=== PATIENT | female | born 1955 | race Caucasian/White ===

== ENCOUNTER 2018-07-28 07:08 | Emergency (ER) | payer BC ==
[2018-07-28] MEDS ORDERED: solu-MEDROL 125 MG IV ONE (07:45)
[2018-07-28] MEDS ORDERED: Sodium Chloride 0.9% 1000 ML 1,000 ML IV SCH (07:45)
[2018-07-28] MEDS ORDERED: DUONEB 0.5-3 MG/3 ml Neb IH ONE ×2 (07:45→08:14)
[2018-07-28] MEDS ORDERED: Zofran 4 MG/2 ML VIAL IV ONE (07:47)
[2018-07-28 07:57] LABS: VBG BASE EXCESS 0.7 (-2.0-2.0); VBG CARBOXYHEMOGLOBIN 2.9 % T HGB (0.0-6.9); VBG HCO3- 25.4 meq/L (22-28); VBG HEMOGLOBIN 12.4; VBG O2 SATURATION 89.6 (95-100); VBG POTASSIUM 3.8 (3.5-5.1); VBG pH 7.41 (7.32-7.42)
[2018-07-28 07:58] LABS: BASOPHIL % 0.2 % (0.0-0.4); Basophil (Absolute #) 0.01 (0-0.4); Eosinophil % 2.5 % (0.00-5.0); Eosinophil (Absolute #) 0.14 (0-0.5); Granulocyte Absolute (ANC) 3.68 (1.4-6.9); Granulocytes % 65.8 % (36.0-66.0); Hematocrit 38.7 % (35-47); Hemoglobin 12.6 gm/dl (12.0-16.0); Lymphocyte (Absolute #) 1.29 (1.0-4.6); Lymphocytes % 23.1 % (24.0-44.0); Mean Cell Volume 91.7 fl (78-100); Mean Corpuscular Hemoglobin 29.9 pg (26-32); Mean Corpuscular Hgb Concent. 32.6 g/dl (32-36); Mean Platelet Volume 9.8 fl (6-9.5); Monocyte (Absolute #) 0.47 (0.0-1.3); Monocytes % 8.4 % (0.0-12.0); Platelet Count 185 K/mm3 (150-450); Red Blood Count 4.22 M/mm3 (4.1-5.4); Red Cell Distribution Width 12.9 % (11.5-14.0); White Blood Count 5.6 K/mm3 (4.0-10.5)
[2018-07-28 07:59] LABS: Lactic Acid 2.6 (0.4-2.0)
[2018-07-28] MEDS ORDERED: MORPHINE SULFATE 4 MG INJ IV ONE (08:00)
--- NOTE | 2018-07-28 08:00 | ERPHSYRPT ---
- History of Present Illness Time Seen by Provider: 07/28/18 07:25 Patient Subjective Stated Complaint: short of breath and severe headache Triage Nursing Assessment: Pt brought in by EMS with c/o of SOB and a severe headache, was placed on 2L NC, rates pain in head 10/10, unable to lie flat due to breathing, +1 pitting edema on bilateral lower extremities, chest clear, sinus tach, afebrile Physician History: PATIENT WITH HISTORY OF HYPERTENSION AND MULTIPLE ADMISSIONS FOR COMPLAINS OF ACUTE ONSE, OCCASIONAL COUGH THIS M ASSOCIATED WITH AN OCCIP pATIENT DENIES CHEST PAIN, DIAPHORESIS, PALPITATIONS, OR FEVER. Timing/Duration: today Activities at Onset: activity Severity of Dyspnea-Max: moderate Severity of Dyspnea-Current: moderate Possible Cause: occasional episodes Modifying Factors: Improves With: activity, coughing, lying down Associated Symptoms: constant (HEADACHE) International travel in last 2 weeks: No Allergies/Adverse Reactions: No Known Drug Allergies Allergy (Verified 07/28/18 07:29) Home Medications: Hydroxyzine HCl 25 mg [Atarax 25 mg] 25 mg PO BID 01/08/15 [History] Aspirin 81 gm Chew [Baby Aspirin 81 mg Chew] 81 mg PO DAILY 06/14/16 [ History] Haskell-3S/Dha/Epa/Fish Oil [Fish Oil 1,200 mg Softgel] 1 cap PO BID 06/14/16 [ History] Pravastatin Sodium 40 mg PO HS 06/14/16 [History] Atorvastatin Calcium [Lipitor] 10 mg PO DAILY 07/28/18 [History] Hx Tetanus, Diphtheria Vaccination/Date Given: Yes Hx Influenza Vaccination/Date Given: Yes Hx Pneumococcal Vaccination/Date Given: No - Review of Systems Constitutional: No Fever, No Chills Eyes: No Symptoms Ears, Nose, & Throat: No Symptoms Respiratory: Cough, No Dyspnea Cardiac: No Symptoms, No Chest Pain, No Edema, No Syncope Abdominal/Gastrointestinal: No Symptoms, No Abdominal Pain, No Nausea, No Vomiting, No Diarrhea Genitourinary Symptoms: No Symptoms, No Dysuria Musculoskeletal: No Symptoms, No Back Pain, No Neck Pain Skin: No Rash Neurological: Headache, No Dizziness, No Focal Weakness, No Sensory Changes Psychological: No Symptoms Endocrine: No Symptoms All Other Systems: Reviewed and Negative - Past Medical History Pertinent Past Medical History: Yes Neurological History: No Pertinent History ENT History: No Pertinent History Cardiac History: High Cholesterol, Hypertension Respiratory History: No Pertinent History Endocrine Medical History: No Pertinent History Musculoskeletal History: Arthritis, Osteoporosis GI Medical History: No Pertinent History History: No Pertinent History Psycho-Social History: No Pertinent History Female Reproductive Disorders: No Pertinent History Other Medical History: Previous R knee scope 8-9 years ago. Also with a L knee scope in the past. - Past Surgical History Past Surgical History: Yes Neuro Surgical History: No Pertinent History Cardiac: No Pertinent History Respiratory: No Pertinent History Gastrointestinal: Cholecystectomy Genitourinary: No Pertinent History Musculoskeletal: Orthopedic Surgery Female Surgical History: Hysterectomy Other Surgical History: KNEE SURGERY - Social History Smoking Status: Smoker, status unknown Exposure to second hand smoke: No Drug Use: none Patient Lives Alone: No - Female History Hx Now: No - Nursing Vital Signs Nursing Vital Signs: Initial Vital Signs Temperature 98.1 F 07/28/18 07:18 Pulse Rate 81 07/28/18 07:18 Respiratory Rate 19 07/28/18 07:18 Blood Pressure 147/82 07/28/18 07:18 O2 Sat by Pulse Oximetry 98 07/28/18 07:18 Pain Scale Pain Intensity 4 - Physical Exam General Appearance: no apparent distress, alert Eye Exam: PERRL/EOMI Neck Exam: normal inspection, supple Respiratory Exam: diminished breath sounds (AT BASES OCCASIONA TERMINAL EXPIRATORY WHEEZES) Cardiovascular/Chest Exam: normal heart sounds, regular rate/rhythm Abdominal/Gastrointestinal Exam: soft, No tenderness, No distention, No mass Extremity Exam: non-tender, normal range of motion, normal inspection, no calf tenderness, no pedal edema Peripheral Pulses Exam: carotid (R): 2+, carotid (L): 2+, femoral (R): 2+, femoral (L): 2+, dorsalis-pedis (R): 2+, dorsalis-pedis (L): 2+ Neurologic Exam: alert, oriented x 3, cooperative, moisture meter reader II-XII nml as tested, sensation nml, No motor deficits Skin Exam: normal color, warm, No dry SpO2 Interpretation: normal SpO2: 98 - Course EKG Interpreted by Me: RATE, Sinus Rhythm (RATE OF 81), NORMAL AXIS - Radiology Exams Chest X-ray Interpretation: Interpreted by me (HYPERINFLATION, FLAT DIAPHRAMS, RIGHT LOWER LOBE INFILTRATE) - CT Exams Chest CT Interpretation: Tele-radiologist Report (NO EVIDENCE OF PULMONARY EMBOLISM, THERE ARE MILD PATCHY ATELECTASIS SCATTERED THROUGHOUT BOTH LUNGS) Ordered Tests: Active Orders 24 hr Category Date Time Status Cane Piler STAT Care 07/28/18 07:46 Active EKG-ER Only STAT Care 07/28/18 07:45 Active Pulse Oximetry (ED) STAT Care 07/28/18 07:45 Active CHEST 1 VIEW (PORTABLE) Stat Exams 07/28/18 07:46 Taken CHEST WITH CONTRAST [CT] Stat Exams 07/28/18 08:15 Taken BLOOD CULTURE Stat Lab 07/28/18 08:00 Received CBC W DIFF Stat Lab 07/28/18 07:30 Completed CMP Stat Lab 07/28/18 07:30 Completed D-DIMER QUANTITATION Stat Lab 07/28/18 07:30 Completed Lactic Acid Stat Lab 07/28/18 07:45 Completed Lactic Acid Stat Lab 07/28/18 09:59 Results MAGNESIUM Stat Lab 07/28/18 07:30 Completed NT PRO BNP Stat Lab 07/28/18 07:30 Completed PROTIME WITH INR Stat Lab 07/28/18 07:30 Completed TROPONIN Q3H Lab 07/28/18 07:30 Completed TROPONIN Q3H Lab 07/28/18 10:30 Received TROPONIN Q3H Lab 07/28/18 13:45 Ordered TROPONIN Q3H Lab 07/28/18 16:45 Ordered TROPONIN Q3H Lab 07/28/18 19:45 Ordered VENOUS BLOOD GAS Stat Lab 07/28/18 07:48 Completed Peak Expiratory Flow Rate ONCE RT 07/28/18 07:47 Completed Respiratory Therapy Assessment DAILY RT 07/28/18 08:21 Completed Medication Summary Generic Name Dose Route Start Last Admin Trade Name Freq PRN Reason Stop Dose Admin Sodium Chloride 1,000 mls @ 50 mls/hr 07/28/18 07:45 07/28/18 08:20 Sodium Chloride 0.9% 1000 Ml IV 08/27/18 07:44 Infused .Q20H [facility] Infusion Discontinued Medications Generic Name Dose Route Start Last Admin Trade Name Freq PRN Reason Stop Dose Admin Albuterol/Ipratropium 3 ml 07/28/18 07:45 07/28/18 08:20 Duoneb 0.5-3 Mg/3 Ml Neb IH 07/28/18 07:46 3 ml STAT ONE Administration Albuterol/Ipratropium Confirm 07/28/18 08:14 Duoneb 0.5-3 Mg/3 Ml Neb Administered 07/28/18 08:15 Dose 3 ml IH .STK-MED ONE Sodium Chloride 1,000 mls @ 999 mls/hr 07/28/18 09:27 07/28/18 10:58 Sodium Chloride 0.9% 1000 Ml IV 07/28/18 10:27 999 mls/hr .Q1H1M STA Administration Levofloxacin/Dextrose 500 mg in 100 mls @ 100 mls/hr 07/28/18 09:28 07/28/18 11:02 Levofloxacin 500mg/100ml D5w IV 07/28/18 10:27 Infused STAT STA Infusion Levofloxacin/Dextrose Confirm 07/28/18 09:55 Levofloxacin 500mg/100ml D5w Administered 07/28/18 09:56 Dose 500 mg in 100 mls @ ud IV .STK-MED ONE Methylprednisolone Sodium Succinate 125 mg 07/28/18 07:45 07/28/18 08:06 Solu-Medrol 125 Mg IV 07/28/18 07:46 125 mg STAT ONE Administration Methylprednisolone Sodium Succinate Confirm 07/28/18 08:02 Solu-Medrol 125 Mg Administered 07/28/18 08:03 Dose 125 mg .ROUTE .STK-MED ONE Morphine Sulfate 4 mg 07/28/18 08:00 07/28/18 08:12 Morphine Sulfate 4 Mg Inj IV 07/28/18 08:01 4 mg STAT ONE Administration Morphine Sulfate Confirm 07/28/18 08:10 Morphine Sulfate 4 Mg Inj Administered 07/28/18 08:11 Dose 4 mg .ROUTE .STK-MED ONE Ondansetron HCl 4 mg 07/28/18 07:47 07/28/18 08:07 Zofran 4 Mg/2 Ml Vial IV 07/28/18 07:48 4 mg STAT ONE Administration Ondansetron HCl Confirm 07/28/18 08:02 Zofran 4 Mg/2 Ml Vial Administered 07/28/18 08:03 Dose 4 mg .ROUTE .STK-MED ONE Lab/Rad Data: Laboratory Result Diagrams 07/28/18 07:30 07/28/18 07:30 Laboratory Results 07/28/18 07/28/18 07/28/18 Range/Units 09:59 08:00 07:48 WBC (4.0-10.5) K/mm3 RBC (4.1-5.4) M/mm3 Hgb (12.0-16.0) gm/dl Hct (35-47) % MCV (78-100) fl MCH (26-32) pg MCHC (32-36) g/dl RDW (11.5-14.0) % Plt Count (150-450) K/mm3 MPV (6-9.5) fl Gran % (36.0-66.0) % Eos # (Auto) (0-0.5) Absolute Lymphs (auto) (1.0-4.6) Absolute Monos (auto) (0.0-1.3) Lymphocytes % (24.0-44.0) % Monocytes % (0.0-12.0) % Eosinophils % (0.00-5.0) % Basophils % (0.0-0.4) % Absolute Granulocytes (1.4-6.9) Basophils # (0-0.4) PT (9.95-12.35) SECONDS INR (0.8-3.0) D-Dimer (215-500) ng/mL pO2/FiO2 Ratio 21.0 % VBG pH 7.41 (7.32-7.42) VBG pCO2 at Pat Temp 40 L (42-55) mm/Hg VBG pO2 at Pat Temp 48 H (25-40) mm/Hg VBG HCO3 25.4 (22-28) meq/L VBG O2 Sat (Darren) 89.6 L (95-100) VBG Base Excess 0.7 (-2.0-2.0) VBG Hemoglobin 12.4 VBG Carboxyhemoglobin 2.9 (0.0-6.9) % T HGB POC Potassium 3.8 (3.5-5.1) Sodium (137-145) mmol/L Potassium (3.5-5.1) mmol/L Chloride (98-107) mmol/L Carbon Dioxide (22-30) mmol/L Anion Gap (5-15) MEQ/L BUN (7-17) mg/dL Creatinine (0.52-1.04) mg/dL Estimated GFR ML/MIN Glucose (74-106) mg/dL Lactic Acid 2.0 (0.4-2.0) Calcium (8.4-10.2) mg/dL Magnesium (1.6-2.3) mg/dL Total Bilirubin (0.2-1.3) mg/dL AST (14-36) U/L ALT (0-35) U/L Alkaline Phosphatase (38-126) U/L Troponin I (0.000-0.034) ng/mL NT-Pro-B Natriuret Pep (0-900) pg/mL Serum Total Protein (6.3-8.2) g/dL Albumin (3.5-5.0) g/dL Influenza Type A Ag NEGATIVE (NEGATIVE) Influenza Type B Ag NEGATIVE (NEGATIVE) RSV (PCR) NEGATIVE (Negative) 07/28/18 07/28/18 07/28/18 Range/Units 07:45 07:30 07:30 WBC (4.0-10.5) K/mm3 RBC (4.1-5.4) M/mm3 Hgb (12.0-16.0) gm/dl Hct (35-47) % MCV (78-100) fl MCH (26-32) pg MCHC (32-36) g/dl RDW (11.5-14.0) % Plt Count (150-450) K/mm3 MPV (6-9.5) fl Gran % (36.0-66.0) % Eos # (Auto) (0-0.5) Absolute Lymphs (auto) (1.0-4.6) Absolute Monos (auto) (0.0-1.3) Lymphocytes % (24.0-44.0) % Monocytes % (0.0-12.0) % Eosinophils % (0.00-5.0) % Basophils % (0.0-0.4) % Absolute Granulocytes (1.4-6.9) Basophils # (0-0.4) PT 10.3 (9.95-12.35) SECONDS INR 0.89 (0.8-3.0) D-Dimer 516 H* (215-500) ng/mL pO2/FiO2 Ratio % VBG pH (7.32-7.42) VBG pCO2 at Pat Temp (42-55) mm/Hg VBG pO2 at Pat Temp (25-40) mm/Hg VBG HCO3 (22-28) meq/L VBG O2 Sat (Darren) (95-100) VBG Base Excess (-2.0-2.0) VBG Hemoglobin VBG Carboxyhemoglobin (0.0-6.9) % T HGB POC Potassium (3.5-5.1) Sodium 139 (137-145) mmol/L Potassium 3.9 (3.5-5.1) mmol/L Chloride 104 (98-107) mmol/L Carbon Dioxide 25 (22-30) mmol/L Anion Gap 14.3 (5-15) MEQ/L BUN 16 (7-17) mg/dL Creatinine 0.49 L (0.52-1.04) mg/dL Estimated GFR > 60.0 ML/MIN Glucose 121 H (74-106) mg/dL Lactic Acid 2.6 H (0.4-2.0) Calcium 9.3 (8.4-10.2) mg/dL Magnesium 1.9 (1.6-2.3) mg/dL Total Bilirubin 0.40 (0.2-1.3) mg/dL AST 23 (14-36) U/L ALT 22 (0-35) U/L Alkaline Phosphatase 81 (38-126) U/L Troponin I (0.000-0.034) ng/mL NT-Pro-B Natriuret Pep 88.8 (0-900) pg/mL Serum Total Protein 7.3 (6.3-8.2) g/dL Albumin 4.2 (3.5-5.0) g/dL Influenza Type A Ag (NEGATIVE) Influenza Type B Ag (NEGATIVE) RSV (PCR) (Negative) 07/28/18 07/28/18 Range/Units 07:30 07:30 WBC 5.6 (4.0-10.5) K/mm3 RBC 4.22 (4.1-5.4) M/mm3 Hgb 12.6 (12.0-16.0) gm/dl Hct 38.7 (35-47) % MCV 91.7 (78-100) fl MCH 29.9 (26-32) pg MCHC 32.6 (32-36) g/dl RDW 12.9 (11.5-14.0) % Plt Count 185 (150-450) K/mm3 MPV 9.8 H (6-9.5) fl Gran % 65.8 (36.0-66.0) % Eos # (Auto) 0.14 (0-0.5) Absolute Lymphs (auto) 1.29 (1.0-4.6) Absolute Monos (auto) 0.47 (0.0-1.3) Lymphocytes % 23.1 L (24.0-44.0) % Monocytes % 8.4 (0.0-12.0) % Eosinophils % 2.5 (0.00-5.0) % Basophils % 0.2 (0.0-0.4) % Absolute Granulocytes 3.68 (1.4-6.9) Basophils # 0.01 (0-0.4) PT (9.95-12.35) SECONDS INR (0.8-3.0) D-Dimer (215-500) ng/mL pO2/FiO2 Ratio % VBG pH (7.32-7.42) VBG pCO2 at Pat Temp (42-55) mm/Hg VBG pO2 at Pat Temp (25-40) mm/Hg VBG HCO3 (22-28) meq/L VBG O2 Sat (Darren) (95-100) VBG Base Excess (-2.0-2.0) VBG Hemoglobin VBG Carboxyhemoglobin (0.0-6.9) % T HGB POC Potassium (3.5-5.1) Sodium (137-145) mmol/L Potassium (3.5-5.1) mmol/L Chloride (98-107) mmol/L Carbon Dioxide (22-30) mmol/L Anion Gap (5-15) MEQ/L BUN (7-17) mg/dL Creatinine (0.52-1.04) mg/dL Estimated GFR ML/MIN Glucose (74-106) mg/dL Lactic Acid (0.4-2.0) Calcium (8.4-10.2) mg/dL Magnesium (1.6-2.3) mg/dL Total Bilirubin (0.2-1.3) mg/dL AST (14-36) U/L ALT (0-35) U/L Alkaline Phosphatase (38-126) U/L Troponin I < 0.012 (0.000-0.034) ng/mL NT-Pro-B Natriuret Pep (0-900) pg/mL Serum Total Protein (6.3-8.2) g/dL Albumin (3.5-5.0) g/dL Influenza Type A Ag (NEGATIVE) Influenza Type B Ag (NEGATIVE) RSV (PCR) (Negative) - Progress Progress Note: 07/28/18 08:09 ADMINISTERED IV NORMAL SALINE 1 LITER/HR FOR LACTIC ACID 2.6, SOLUMEDROL 125MG, DUONEB AEROSOL, ZOFRAN 4MG, MORPHINE 4MG IV 07/28/18 11:24 AFTER 2 SETS OF BLOOD CULTURES, LEVAQUIN 500MG IVPB 07/28/18 11:31 DISCUSSED WITH PATIENT CONCERNING ADMISSION, REQUEST AMA, REFUSES ADMISSION FOR DYSPNEA Blood Culture(s) Obtained: Yes Antibiotics given: Yes Counseled pt/family regarding: lab results, diagnosis, need for follow-up, rad results - Departure Time of Disposition: 11:30 Departure Disposition: AMA Clinical Impression: ACUTE BRONCHITS WITH BRONCHIOSPASM, ACUTE CEPHALGIA Condition: Stable Critical Care Time: No Referrals: ALETHEA WASHINGTON [ACTIVE STAFF] - Additional Instructions: ANTIBIOTIC LEVAQUIN 500MG DAILY FOR 10 DAYS. PREDNISONE 20MG, 2 TABLETS DAILY FOR 4 DAYS, ALBUTEROL AEROSOL TREATMENT EVERY 4 HOURS NEEDED. CONSULT YOUR PRIMARY CARE PROVIDER FOR EVALUATION IN 1 WEEK. RETURN TO EMERGENCY FOR BREATHING DIFFICULTY. Prescriptions: Albuterol 2.5 mg/3 ml Neb [Proventil 2.5 mg/3 ml Neb] 2.5 mg IH Q4HPRN PRN #30 neb PRN Reason: DIFICULTY BREATHING Levofloxacin [Levaquin] 500 mg PO DAILY #10 tablet predniSONE [Prednisone] 2 tab PO DAILY #8 tablet
[2018-07-28 08:01] LABS: INR 0.89 (0.8-3.0); PROTIME 10.3 SECONDS (9.95-12.35)
[2018-07-28] MEDS ORDERED: solu-MEDROL 125 MG ONE (08:02)
[2018-07-28] MEDS ORDERED: Zofran 4 MG/2 ML VIAL ONE (08:02)
[2018-07-28] MEDS ORDERED: Sodium Chloride 0.9% 1000 ML 1,000 ML ONE ×2 (08:02→10:58)
[2018-07-28] MEDS ORDERED: MORPHINE SULFATE 4 MG INJ ONE (08:10)
[2018-07-28 08:13] LABS: ALBUMIN 4.2 g/dL (3.5-5.0); ALKALINE PHOSPHATASE 81 U/L (38-126); ANION GAP 14.3 MEQ/L (5-15); BLOOD UREA NITROGEN 16 mg/dL (7-17); CHLORIDE 104 mmol/L (98-107); Calcium 9.3 mg/dL (8.4-10.2); Carbon Dioxide 25 mmol/L (22-30); Creatinine 1 0.49 mg/dL (0.52-1.04); Glucose 121 mg/dL (74-106); MAGNESIUM 1.9 mg/dL (1.6-2.3); NT PRO BNP 88.8 pg/mL (0-900); Potassium 3.9 mmol/L (3.5-5.1); SGOT/AST 23 U/L (14-36); SGPT/ALT 22 U/L (0-35); SODIUM 139 mmol/L (137-145); Total Protein 7.3 g/dL (6.3-8.2)
[2018-07-28 09:02] LABS: INFLUENZA A NEGATIVE (NEGATIVE); INFLUENZA B NEGATIVE (NEGATIVE); RESPIRATORY SYNCTIAL VIRUS NEGATIVE (Negative)
[2018-07-28] MEDS ORDERED: Sodium Chloride 0.9% 1000 ML 1,000 ML IV STA (09:27)
[2018-07-28] MEDS ORDERED: Levofloxacin 500MG/100ML D5W 500 MG/100 ML BAG IV STA (09:28)
[2018-07-28] MEDS ORDERED: Levofloxacin 500MG/100ML D5W 500 MG/100 ML BAG IV ONE (09:55)
[2018-07-28 10:01] VITALS: BP 148/80; PULSE 82
[2018-07-28 11:24] VITALS: O2SAT 98
--- NOTE | 2018-07-28 15:55 | XRAY ---
Indication: Dyspnea. Comparison: June 28, 2016. Portable chest again demonstrates normal heart and lungs. Bony thorax intact with mild degenerative changes. No new/acute findings.
--- NOTE | 2018-07-28 16:00 | XRAY ---
Indication: Dyspnea. Elevated d-dimer. Multiple contiguous axial images obtained through the chest using 100 cc Isovue-370 contrast and PE protocol. Comparison: CT chest without contrast June 19, 2016. There is satisfactory opacification of the pulmonary arteries to include the lobar and segmental branches. No filling defect or pulmonary embolus. Heart is not enlarged. Aorta is normal in course and caliber. Stable small mediastinal lymph nodes, again largest precarinal measuring 1.5 x 2.2 cm. Also stable right hilar calcified node. Examination of the lung parenchyma again demonstrates minimal scattered fibrosis/scarring and tiny left base calcified pleural plaquing. No suspicious pulmonary mass, infiltrate, or effusion. Bony thorax intact again with mild degenerative changes throughout the spine. Limited upper abdomen unremarkable. Impression: 1. Negative pulmonary embolus. 2. Stable fibrosis/scarring, left base calcified pleural plaquing, and evidence for old granulomatous disease. 3. No acute cardiopulmonary abnormalities. Comment: Preliminary interpretation was made by [facility]. No discrepancy. CTDI 23.68
== END 2018-07-28 11:41 | disposition left against medical advice (07) ==
LOC: ED 07:08
DX: J20.9 Acute bronchitis, unspecified (principal); R51 Headache; E78.00 Pure hypercholesterolemia, unspecified; I10 Essential (primary) hypertension; M81.0 Age-related osteoporosis without current pathological fracture; M19.90 Unspecified osteoarthritis, unspecified site; Z79.899 Other long term (current) drug therapy
CPT/HCPCS: 36415; 71045; 71260; 80053; 82805; 83605; 83735; 83880; 84484; 85025; 85379; 85610; 87040; 87631; 93005; 93041; 94150; 94640; 96360; 96361; 96365; 96374; 96375; 99285; J1956; J2270; J2405; J2930; A9270-GY

== ENCOUNTER 2020-06-07 18:13 | Emergency (ER) | payer MEDICARE ==
[2020-06-07] MEDS ORDERED: MORPHINE SULFATE 2 MG INJ ONE (18:44)
[2020-06-07] MEDS: MORPHINE SULFATE 2 MG INJ IV ONE (18:46)
[2020-06-07 19:08] VITALS: O2SAT 97
--- NOTE | 2020-06-07 19:15 | ERPHSYRPT ---
- History of Present Illness Time Seen by Provider: 06/07/20 18:35 Source: patient Exam Limitations: no limitations Patient Subjective Stated Complaint: Back pain Triage Nursing Assessment: Patient brought back to ED via w/c and transferred self to bed. Patient A+O X 3. Patient's skin pink, warm and dry. Patient complains of pain to underneath Left shoulder blade since last night. Patient denies injury. Patient states the pain is constant, sharp 9/10 and worse when taking a breath. Lungs clear a/p j carlos. Physician History: Patient is a 64-year-old female presents to our emergency department for evaluation status post positive D-dimer. Patient has been experiencing pain at her left upper back adjacent to her scapula. Pain described as a sharp pain that is worse with deep inspiration. Patient's primary care doctor ordered lab work including a D-dimer. D-dimer was positive. Patient was advised to come to our ED for CTA chest. Patient denies chest pain. No nausea vomiting or diaphoresis. Symptoms are mild to moderate in intensity. Patient voices no other complaints or concerns at this time. Timing/Duration: yesterday Severity: moderate Modifying Factors: Improves With: other (Inspiration worsens symptoms.) Associated Symptoms: No nausea, No vomiting, No abdominal pain, No shortness of breath, No diaphoresis, No fever, No loss of appetite Allergies/Adverse Reactions: No Known Drug Allergies Allergy (Verified 06/07/20 18:26) Home Medications: Hydroxyzine HCl 25 mg [Atarax 25 mg] 25 mg PO BID 01/08/15 [History] Aspirin 81 gm Chew [Baby Aspirin 81 mg Chew] 81 mg PO DAILY 06/14/16 [History] [place]-3S/Dha/Epa/Fish Oil [Fish Oil 1,200 mg Softgel] 1 cap PO BID 06/14/16 [History] Pravastatin Sodium 40 mg PO HS 06/14/16 [History] Atorvastatin Calcium [Lipitor] 10 mg PO DAILY 07/28/18 [History] Hx Tetanus, Diphtheria Vaccination/Date Given: Yes Hx Influenza Vaccination/Date Given: Yes Hx Pneumococcal Vaccination/Date Given: No Immunizations Up to Date: Yes Travel Risk - International Travel Have you traveled outside of the country in past 3 weeks: No - Coronavirus Screening Are you exhibiting any of the following symptoms?: No Symptoms: Shortness of Breath Close contact with a COVID-19 positive Pt in past 14-21 Days: No - Review of Systems Constitutional: No Symptoms, No Fever, No Chills Eyes: No Symptoms Ears, Nose, & Throat: No Symptoms Respiratory: No Symptoms, No Cough, No Dyspnea Cardiac: No Symptoms, No Chest Pain, No Edema, No Syncope Abdominal/Gastrointestinal: No Symptoms, No Abdominal Pain, No Nausea, No Vomiting, No Diarrhea Genitourinary Symptoms: No Symptoms, No Dysuria Musculoskeletal: No Symptoms, No Back Pain, No Neck Pain Skin: No Symptoms, No Rash Neurological: No Symptoms, No Dizziness, No Focal Weakness, No Sensory Changes Psychological: No Symptoms Endocrine: No Symptoms Hematologic/Lymphatic: No Symptoms Immunological/Allergic: No Symptoms All Other Systems: Reviewed and Negative - Past Medical History Pertinent Past Medical History: Yes Neurological History: No Pertinent History ENT History: No Pertinent History Cardiac History: High Cholesterol, Hypertension Respiratory History: No Pertinent History Endocrine Medical History: No Pertinent History Musculoskeletal History: Arthritis, Osteoporosis GI Medical History: No Pertinent History History: No Pertinent History Psycho-Social History: No Pertinent History Female Reproductive Disorders: No Pertinent History Other Medical History: Previous R knee scope 8-9 years ago. Also with a L knee scope in the past. - Past Surgical History Past Surgical History: Yes Neuro Surgical History: No Pertinent History Cardiac: No Pertinent History Respiratory: No Pertinent History Gastrointestinal: Cholecystectomy Genitourinary: No Pertinent History Musculoskeletal: Orthopedic Surgery Female Surgical History: Hysterectomy Other Surgical History: KNEE SURGERY - Social History Smoking Status: Smoker, status unknown Exposure to second hand smoke: No Drug Use: none Patient Lives Alone: No - Nursing Vital Signs Nursing Vital Signs: Initial Vital Signs Temperature 98.3 F 06/07/20 18:27 Pulse Rate 92 H 06/07/20 18:27 Respiratory Rate 26 H 06/07/20 18:27 Blood Pressure 170/86 06/07/20 18:27 O2 Sat by Pulse Oximetry 97 06/07/20 18:27 Pain Scale Pain Intensity 7 - Physical Exam General Appearance: no apparent distress, alert Eye Exam: PERRL/EOMI, eyes nml inspection Ears, Nose, Throat Exam: normal ENT inspection, TMs normal, pharynx normal, moist mucous membranes Neck Exam: normal inspection, non-tender, supple, full range of motion Respiratory Exam: normal breath sounds, lungs clear, No respiratory distress Cardiovascular Exam: regular rate/rhythm, normal heart sounds, normal peripheral pulses Gastrointestinal/Abdomen Exam: soft, normal bowel sounds, No tenderness, No mass Back Exam: normal inspection, normal range of motion, No CVA tenderness, No vertebral tenderness Extremity Exam: normal inspection, normal range of motion, pelvis stable Neurologic Exam: alert, oriented x 3, cooperative, normal mood/affect, nml cerebellar function, nml station & gait, sensation nml, No motor deficits Skin Exam: normal color, warm, dry, No rash Lymphatic Exam: No adenopathy SpO2 Interpretation: normal SpO2: 97 O2 Delivery: Room Air - Course Nursing assessment & vital signs reviewed: Yes EKG Interpreted by Me: RATE (82), Sinus Rhythm, NORMAL AXIS, NORMAL INTERVALS - CT Exams Chest CT Interpretation: Tele-radiologist Report (Compared to 02/12/2020, negative PE. No new acute cardiopulmonary or bony abnormalities.) Ordered Tests: Active Orders 24 hr Category Date Time Status Procurement Officer STAT Care 06/07/20 18:30 Active EKG-ER Only STAT Care 06/07/20 18:29 Active IV Insertion STAT Care 06/07/20 18:29 Active Pulse Oximetry (ED) STAT Care 06/07/20 18:29 Active CHEST WITH CONTRAST [CT] Stat Exams 06/07/20 18:30 Taken CBC W DIFF Stat Lab 06/07/20 18:49 Completed CMP Stat Lab 06/07/20 18:49 Completed MAGNESIUM Stat Lab 06/07/20 18:49 Completed TROPONIN Q3H Lab 06/07/20 18:49 Completed TROPONIN Q3H Lab 06/07/20 21:30 Ordered TROPONIN Q3H Lab 06/08/20 00:30 Ordered TROPONIN Q3H Lab 06/08/20 03:30 Ordered TROPONIN Q3H Lab 06/08/20 06:30 Ordered Medication Summary Discontinued Medications Generic Name Dose Route Start Last Admin Trade Name Freq PRN Reason Stop Dose Admin Morphine Sulfate 2 mg 06/07/20 18:43 06/07/20 18:46 Morphine Sulfate 2 Mg Inj IV 06/07/20 18:44 Not Given STAT ONE Morphine Sulfate Confirm 06/07/20 18:44 Morphine Sulfate 2 Mg Inj Administered 06/07/20 18:45 Dose 2 mg .ROUTE .Porch Lab/Rad Data: Laboratory Result Diagrams 06/07/20 18:49 06/07/20 18:49 Laboratory Results 06/07/20 06/07/20 06/07/20 Range/Units 18:49 18:49 18:49 WBC 7.8 (4.0-10.5) K/mm3 RBC 4.47 (4.1-5.4) M/mm3 Hgb 13.4 (12.0-16.0) gm/dl Hct 40.6 (35-47) % MCV 90.8 (78-100) fl MCH 30.0 (26-32) pg MCHC 33.0 (32-36) g/dl RDW 13.2 (11.5-14.0) % Plt Count 209 (150-450) K/mm3 MPV 10.1 (7.5-11.0) fl Gran % 69.4 H (36.0-66.0) % Eos # (Auto) 0.14 (0-0.5) Absolute Lymphs (auto) 1.53 (1.0-4.6) Absolute Monos (auto) 0.69 (0.0-1.3) Lymphocytes % 19.6 L (24.0-44.0) % Monocytes % 8.8 (0.0-12.0) % Eosinophils % 1.8 (0.00-5.0) % Basophils % 0.4 (0.0-0.4) % Absolute Granulocytes 5.43 (1.4-6.9) Basophils # 0.03 (0-0.4) Sodium 136 L (137-145) mmol/L Potassium 4.3 (3.5-5.1) mmol/L Chloride 103 (98-107) mmol/L Carbon Dioxide 26 (22-30) mmol/L Anion Gap 11.8 (5-15) MEQ/L BUN 21 H (7-17) mg/dL Creatinine 0.42 L (0.52-1.04) mg/dL Estimated GFR > 60.0 ML/MIN Glucose 114 H (74-106) mg/dL Calcium 9.6 (8.4-10.2) mg/dL Magnesium 1.8 (1.6-2.3) mg/dL Total Bilirubin 0.50 (0.2-1.3) mg/dL AST 34 (14-36) U/L ALT 27 (0-35) U/L Alkaline Phosphatase 77 (38-126) U/L Troponin I < 0.012 (0.000-0.034) ng/mL Serum Total Protein 8.2 (6.3-8.2) g/dL Albumin 4.4 (3.5-5.0) g/dL Urinalys Dipstick Clnc Urine Color (YELLOW) Urine Appearance (CLEAR) Urine pH (5-6) Ur Specific [place] (1.005-1.025) POC Urine Protein Conf (Negative) Urine Ketones (NEGATIVE) Urine Nitrite (NEGATIVE) Urine Bilirubin (NEGATIVE) Urine Urobilinogen (0-1) mg/dL Urine Leukocytes (NEGATIVE) Urine WBC (Auto) (0-5) /HPF Urine RBC (Auto) (0-2) /HPF U Epithel Cells (Auto) (FEW) /HPF Urine Bacteria (Auto) (NEGATIVE) /HPF Urine RBC (0-5) Simone/ul Ur Culture Indicated? Urine Glucose (NEGATIVE) mg/dL 06/07/20 Range/Units 18:26 WBC (4.0-10.5) K/mm3 RBC (4.1-5.4) M/mm3 Hgb (12.0-16.0) gm/dl Hct (35-47) % MCV (78-100) fl MCH (26-32) pg MCHC (32-36) g/dl RDW (11.5-14.0) % Plt Count (150-450) K/mm3 MPV (7.5-11.0) fl Gran % (36.0-66.0) % Eos # (Auto) (0-0.5) Absolute Lymphs (auto) (1.0-4.6) Absolute Monos (auto) (0.0-1.3) Lymphocytes % (24.0-44.0) % Monocytes % (0.0-12.0) % Eosinophils % (0.00-5.0) % Basophils % (0.0-0.4) % Absolute Granulocytes (1.4-6.9) Basophils # (0-0.4) Sodium (137-145) mmol/L Potassium (3.5-5.1) mmol/L Chloride (98-107) mmol/L Carbon Dioxide (22-30) mmol/L Anion Gap (5-15) MEQ/L BUN (7-17) mg/dL Creatinine (0.52-1.04) mg/dL Estimated GFR ML/MIN Glucose (74-106) mg/dL Calcium (8.4-10.2) mg/dL Magnesium (1.6-2.3) mg/dL Total Bilirubin (0.2-1.3) mg/dL AST (14-36) U/L ALT (0-35) U/L Alkaline Phosphatase (38-126) U/L Troponin I (0.000-0.034) ng/mL Serum Total Protein (6.3-8.2) g/dL Albumin (3.5-5.0) g/dL Urinalys Dipstick Clnc MAIN LAB Urine Color YELLOW (YELLOW) Urine Appearance CLEAR (CLEAR) Urine pH 5.5 (5-6) Ur Specific [place] 1.020 (1.005-1.025) POC Urine Protein Conf NEGATIVE (Negative) Urine Ketones NEGATIVE (NEGATIVE) Urine Nitrite NEGATIVE (NEGATIVE) Urine Bilirubin NEGATIVE (NEGATIVE) Urine Urobilinogen 0.2 (0-1) mg/dL Urine Leukocytes NEGATIVE (NEGATIVE) Urine WBC (Auto) NONE (0-5) /HPF Urine RBC (Auto) NONE (0-2) /HPF U Epithel Cells (Auto) NONE (FEW) /HPF Urine Bacteria (Auto) NONE (NEGATIVE) /HPF Urine RBC TRACE-INTACT (0-5) Simone/ul Ur Culture Indicated? NO Urine Glucose NEGATIVE (NEGATIVE) mg/dL - Progress Progress: improved Progress Note: 06/07/20 20:26 Patient reassessed. Pain improved. CT a negative for PE. Case discussed with Dr. Diaz our patient's physician who referred her to our emergency department for a CT scan. Per we will discharge home with a prescription of indomethacin. Troponin negative. Plan of care discussed with patient. She agrees to follow-up with her primary care doctor within 48 hours for reevaluation. Discussed with : Madina Counseled pt/family regarding: lab results, diagnosis, need for follow-up, rad results - Departure Departure Disposition: Home Clinical Impression: Upper back pain on left side Condition: Stable Critical Care Time: No Referrals: ALEJO DIAZ MD [Primary Care Provider] - Additional Instructions: Discharge/Care Plan TIAN,FARHEEN RAO was seen on 06/07/20 in the Emergency Room. The patient was counseled regarding Diagnosis,Lab results, Imaging studies, need for follow up and when to return to the Emergency Room. Prescriptions given: Discharge Note I have spoken with the patient and/or caregivers. I have explained the patient's condition, diagnosis and treatment plan based on the information available to me at this time. I have answered the patient's and/or caregiver's questions and addressed any concerns. The patient and/or caregivers have as good understanding of the patient's diagnosis, condition and treatment plan as can be expected at this point. The vital signs have been stable. The patient's condition is stable and appropriate for discharge from the emergency department. The patient will pursue further outpatient evaluation with the primary care physician or other designated or consulting physician as outlined in the discharge instructions. The patient and/or caregivers are agreeable to this plan of care and follow-up instructions have been explained in detail. The patient and/or caregivers have received these instruction. The patient/and or caregivers are aware that any significant change in condition or worsening of symptoms should prompt an immediate return to this or the closest emergency department or call 911.
[2020-06-07 19:25] LABS: Absolute Neutrophil Ct (ANC) 5.43 (1.4-6.9); BASOPHIL % 0.4 % (0.0-0.4); Basophil (Absolute #) 0.03 (0-0.4); Eosinophil % 1.8 % (0.00-5.0); Eosinophil (Absolute #) 0.14 (0-0.5); Hematocrit 40.6 % (35-47); Hemoglobin 13.4 gm/dl (12.0-16.0); Lymphocyte (Absolute #) 1.53 (1.0-4.6); Lymphocytes % 19.6 % (24.0-44.0); Mean Cell Volume 90.8 fl (78-100); Mean Platelet Volume 10.1 fl (7.5-11.0); Monocyte (Absolute #) 0.69 (0.0-1.3); Monocytes % 8.8 % (0.0-12.0); Neutrophil % 69.4 % (36.0-66.0); Platelet Count 209 K/mm3 (150-450); Red Blood Count 4.47 M/mm3 (4.1-5.4); Red Cell Distribution Width 13.2 % (11.5-14.0); White Blood Count 7.8 K/mm3 (4.0-10.5)
[2020-06-07 19:36] LABS: BLOOD UREA NITROGEN 21 mg/dL (7-17); Creatinine 1 0.42 mg/dL (0.52-1.04); EST GLOMERULAR FILTRATION RATE > 60.0 ML/MIN; Glucose 114 mg/dL (74-106); SODIUM 136 mmol/L (137-145)
[2020-06-07 19:38] LABS: ALBUMIN 4.4 g/dL (3.5-5.0); CHLORIDE 103 mmol/L (98-107); Calcium 9.6 mg/dL (8.4-10.2); Carbon Dioxide 26 mmol/L (22-30); MAGNESIUM 1.8 mg/dL (1.6-2.3); Potassium 4.3 mmol/L (3.5-5.1); Total Protein 8.2 g/dL (6.3-8.2)
[2020-06-07 19:39] LABS: ALKALINE PHOSPHATASE 77 U/L (38-126); ANION GAP 11.8 MEQ/L (5-15); SGOT/AST 34 U/L (14-36); SGPT/ALT 27 U/L (0-35)
[2020-06-07 19:43] LABS: Appearance CLEAR (CLEAR); Bilirubin NEGATIVE (NEGATIVE); Dipstick done @ ? MAIN LAB; Glucose NEGATIVE (NEGATIVE); Ketones NEGATIVE (NEGATIVE); Nitrite NEGATIVE (NEGATIVE); Protein,Urine Dip NEGATIVE (Negative); RBC TRACE-INTACT Ery/ul (0-5); Urobilinogen 0.2 mg/dL (0-1)
[2020-06-07 20:28] VITALS: BP 138/93; PULSE 84
--- NOTE | 2020-06-08 08:46 | XRAY ---
Indication: Pain under left shoulder blade. Elevated d-dimer. Multiple contiguous axial images obtained through the chest using 100 cc Isovue 370 contrast and PE protocol. Comparison: CT chest without contrast February 12, 2020 There is good opacification of the pulmonary arteries to include the lobar and segmental branches. No pulmonary embolus. Heart is not enlarged. Aorta is normal in course and caliber. Stable small right hilar calcified nodes. No pathologic mediastinal/hilar lymphadenopathy. Lungs inflated with stable 5 mm left base noncalcified nodule and tiny left posterior gutter calcified pleural plaquing. No suspicious pulmonary mass, infiltrate, or effusion. Bony thorax intact again with mild degenerative changes throughout the spine. Limited upper abdomen again demonstrates fatty liver. Impression: 1. Negative pulmonary embolus. No new/acute cardiopulmonary abnormalities. 2. Stable incidental benign left base noncalcified micronodule, tiny left base calcified pleural plaquing, fatty liver, and old granulomatous disease.
== END 2020-06-07 20:45 | disposition home or self-care (01) ==
LOC: ED 18:13
DX: M54.6 Pain in thoracic spine (principal)
CPT/HCPCS: 36000; 36415; 71046; 71260; 80053; 81015; 83735; 84484; 85025; 85379; 93005; 93041; 94760; 99284; J2270

== ENCOUNTER 2023-03-09 11:55 | Observation (INO) | payer MEDICARE ==
[2023-03-09] MEDS ORDERED: BABY ASPIRIN 81 MG CHEW PO ONE (12:37)
--- NOTE | 2023-03-09 12:37 | XRAY ---
Indication: Chest pain and short of breath. Comparison: September 14, 2022 Portable chest remains inflated and clear. Heart not enlarged with again incidental right hilar calcified nodes. Bony thorax intact again with osteopenia and mild degenerative changes. Impression: Continued nonacute chest with chronic features.
[2023-03-09] MEDS ORDERED: NITRO-BID 2% UD PACKETS TOP ONE (12:38)
[2023-03-09] MEDS ORDERED: MORPHINE SULFATE 4 MG INJ IV ONE (12:38)
--- NOTE | 2023-03-09 12:42 | ERPHSYRPT ---
- History of Present Illness Time Seen by Provider: 03/09/23 12:36 Historian: patient Exam Limitations: no limitations Patient Subjective Stated Complaint: pt here for chest pain to center of chest since 0900 today with sob, she states it hurts to breath Triage Nursing Assessment: pt alert, arrived per wc, moaning out at times, shallow breathing at times. chest clear, abd soft, moves all ext well. Physician History: Patient is a 67-year-old female history of diabetes hypertension hypercholesterolemia BMI of 39 presents to our ED with complaints of chest pain and shortness of breath that started approximately 9 AM this morning. Chest pain is substernal and radiates into her neck. Symptoms have been constant. Ch est pain worse with deep inspiration. No trauma. No fever. No nausea vomiting or diaphoresis. Symptoms are moderate in intensity. No specific worsening improving factors. at bedside. They voiced no other complaints or concerns at this time. Patient took 325 mg aspirin prior to arrival. Portions of this note were created with voice recognition technology. There may be grammatical, spelling, punctuation or sound alike errors Timing/Duration: today Activities at Onset: none Quality: aching Location: substernal Chest Pain Radiation: neck Severity of Pain-Max: moderate Severity of Pain-Current: mild Modifying Factors: Improves With: nothing Associated Symptoms: shortness of breath Prior Chest Pain/Cardiac Workup: no prior chest pain Nitro Today/Relief: no nitro taken today Aspirin Treatment Today: 325 mg x 1 Allergies/Adverse Reactions: No Known Drug Allergies Allergy (Verified 03/09/23 11:59) Home Medications: Hydroxyzine HCl 25 mg [Atarax 25 mg] 25 mg PO BID 01/08/15 [History] Aspirin 81 gm Chew [Baby Aspirin 81 mg Chew] 81 mg PO DAILY 06/14/16 [History] [place]-3S/Dha/Epa/Fish Oil [Fish Oil 1,200 mg Softgel] 1 cap PO BID 06/14/16 [History] Pravastatin Sodium 40 mg PO HS 06/14/16 [History] Atorvastatin Calcium [Lipitor] 10 mg PO DAILY 07/28/18 [History] Lisinopril 10 mg [Zestril 10 MG] 10 mg PO DAILY 03/09/23 [History] Metformin HCl 500 mg [Glucophage 500 MG] 500 mg PO BIDWM 03/09/23 [History] Hx Tetanus, Diphtheria Vaccination/Date Given: No Hx Influenza Vaccination/Date Given: No Hx Pneumococcal Vaccination/Date Given: No Immunizations Up to Date: Yes Travel Risk - International Travel Have you traveled outside of the country in past 3 weeks: No - Coronavirus Screening Are you exhibiting any of the following symptoms?: No - Vaccine Status Have you recieved a Covid-19 vaccination: Yes Client Relations Associate: [email or web address] - Review of Systems Constitutional: No Symptoms, No Fever, No Chills Eyes: No Symptoms Ears, Nose, & Throat: No Symptoms Respiratory: No Symptoms, No Cough, No Dyspnea Cardiac: No Symptoms, No Chest Pain, No Edema, No Syncope Abdominal/Gastrointestinal: No Symptoms, No Abdominal Pain, No Nausea, No Vomiting, No Diarrhea Genitourinary Symptoms: No Symptoms, No Dysuria Musculoskeletal: No Symptoms, No Back Pain, No Neck Pain Skin: No Symptoms, No Rash Neurological: No Symptoms, No Dizziness, No Focal Weakness, No Sensory Changes Psychological: No Symptoms Endocrine: No Symptoms Hematologic/Lymphatic: No Symptoms Immunological/Allergic: No Symptoms All Other Systems: Reviewed and Negative - Past Medical History Pertinent Past Medical History: Yes Neurological History: No Pertinent History ENT History: No Pertinent History Cardiac History: High Cholesterol, Hypertension Respiratory History: No Pertinent History Endocrine Medical History: No Pertinent History Musculoskeletal History: Arthritis, Osteoporosis GI Medical History: No Pertinent History History: No Pertinent History Psycho-Social History: No Pertinent History Female Reproductive Disorders: No Pertinent History Other Medical History: Previous R knee scope 8-9 years ago. Also with a L knee scope in the past. - Past Surgical History Past Surgical History: Yes Neuro Surgical History: No Pertinent History Cardiac: No Pertinent History Respiratory: No Pertinent History Gastrointestinal: Cholecystectomy Genitourinary: No Pertinent History Musculoskeletal: Orthopedic Surgery Female Surgical History: Hysterectomy Other Surgical History: KNEE SURGERY - Social History Smoking Status: Former smoker Exposure to second hand smoke: No Drug Use: none Patient Lives Alone: No - Nursing Vital Signs Nursing Vital Signs: Initial Vital Signs Temperature 97.0 F 03/09/23 12:02 Pulse Rate 93 H 03/09/23 12:02 Respiratory Rate 22 03/09/23 12:02 Blood Pressure 93/41 03/09/23 12:02 O2 Sat by Pulse Oximetry 96 03/09/23 12:02 Pain Scale Pain Intensity 9 - Physical Exam General Appearance: no apparent distress, alert Eye Exam: PERRL/EOMI, eyes nml inspection, other Ears, Nose, Throat Exam: normal ENT inspection, pharynx normal, moist mucous membranes Neck Exam: normal inspection, non-tender, supple, full range of motion Respiratory Exam: normal breath sounds, lungs clear, airway intact, No respiratory distress Cardiovascular Exam: regular rate/rhythm, normal heart sounds, normal peripheral pulses Gastrointestinal/Abdomen Exam: soft, No tenderness, No mass Back Exam: normal inspection, No CVA tenderness, No vertebral tenderness Extremity Exam: normal inspection, normal range of motion Neurologic Exam: alert, oriented x 3, cooperative, normal mood/affect, sensation nml, No motor deficits Skin Exam: normal color, warm, dry Lymphatic Exam: No adenopathy SpO2 Interpretation: normal SpO2: 95 O2 Delivery: Room Air - Course Nursing assessment & vital signs reviewed: Yes EKG Interpreted by Me: RATE (90), Sinus Rhythm, NORMAL AXIS, NORMAL INTERVALS - Radiology Exams Chest X-ray Interpretation: Teleradiologist Report (Continued nonacute chest with chronic features) Ordered Tests: Active Orders 24 hr Category Date Time Status Risk Control Product Liability Director STAT Care 03/09/23 12:19 Active EKG-ER Only STAT Care 03/09/23 12:18 Active IV Insertion STAT Care 03/09/23 12:18 Active Pulse Oximetry (ED) STAT Care 03/09/23 12:18 Active CHEST 1 VIEW (PORTABLE) Stat Exams 03/09/23 12:13 Completed CBC W DIFF Stat Lab 03/09/23 12:40 Completed CMP Stat Lab 03/09/23 12:40 Completed D-DIMER QUANTITATIVE Stat Lab 03/09/23 12:40 Completed NT PRO BNPII Stat Lab 03/09/23 12:40 Completed TROPONIN Q4H Lab 03/09/23 12:40 Completed TROPONIN Q4H Lab 03/09/23 16:15 Ordered TROPONIN Q4H Lab 03/09/23 20:15 Ordered Transfer Order Routine Transfer 03/09/23 Ordered Medication Summary Discontinued Medications Generic Name Dose Route Start Last Admin Trade Name Freq PRN Reason Stop Dose Admin Aspirin 162 mg 03/09/23 12:37 03/09/23 12:51 Aspirin 81 Mg Tab.Chew PO 03/09/23 12:38 Not Given STAT ONE Morphine Sulfate 4 mg 03/09/23 12:38 03/09/23 12:51 Morphine Sulfate 4 Mg/Ml Injection IV 03/09/23 12:39 Not Given STAT ONE Morphine Sulfate Confirm 03/09/23 12:43 Morphine Sulfate 4 Mg/Ml Injection Administered 03/09/23 12:44 Dose 4 mg .ROUTE .STK-MED ONE Nitroglycerin 1 gm 03/09/23 12:38 03/09/23 12:52 Nitroglycerin 1 Gm Packet TOP 03/09/23 12:39 1 gm STAT ONE Administration Nitroglycerin Confirm 03/09/23 12:43 Nitroglycerin 1 Gm Packet Administered 03/09/23 12:44 Dose 1 gm .ROUTE .STK-MED ONE Lab/Rad Data: Laboratory Result Diagrams 03/09/23 12:40 03/09/23 12:40 Laboratory Results 03/09/23 03/09/23 03/09/23 Range/Units 12:40 12:40 12:40 WBC (4.0-10.5) x10^3/uL RBC (4.1-5.4) x10^6/uL Hgb (12.0-16.0) g/dL Hct (35-47) % MCV (78-100) fL MCH (26-32) pg MCHC (32-36) g/dL RDW (11.5-14.0) % Plt Count (150-450) x10^3/uL MPV (7.5-11.0) fL Gran % (36.0-66.0) % Immature Gran % (Auto) (0.00-0.4) % Nucleat RBC Rel Count (0.00-0.1) % Eos # (Auto) (0-0.5) x10^3/uL Immature Gran # (Auto) (0.00-0.03) x10^3u/L Absolute Lymphs (auto) (1.0-4.6) x10^3/uL Absolute Monos (auto) (0.0-1.3) x10^3/uL Absolute Nucleated RBC (0.00-0.01) x10^3u/L Lymphocytes % (24.0-44.0) % Monocytes % (0.0-12.0) % Eosinophils % (0.00-5.0) % Basophils % (0.0-0.4) % Absolute Granulocytes (1.4-6.9) x10^3/uL Basophils # (0-0.4) x10^3/uL D-Dimer 0.42 (0.0-0.50) mg/L Sodium (137-145) mmol/L Potassium (3.5-5.1) mmol/L Chloride (98-107) mmol/L Carbon Dioxide (22-30) mmol/L Anion Gap (5-15) MEQ/L BUN (7-17) mg/dL Creatinine (0.52-1.04) mg/dL Estimated GFR ML/MIN Glucose (74-106) mg/dL Calcium (8.4-10.2) mg/dL Total Bilirubin (0.2-1.3) mg/dL AST (14-36) U/L ALT (0-35) U/L Alkaline Phosphatase (38-126) U/L Troponin I (0.000-0.034) ng/mL NT-Pro-B Natriuret Pep 60.4 (<300) pg/mL Serum Total Protein (6.3-8.2) g/dL Albumin (3.5-5.0) g/dL Influenza Type A Ag NEGATIVE (NEGATIVE) Influenza Type B Ag NEGATIVE (NEGATIVE) RSV (PCR) NEGATIVE (NEGATIVE) SARS-CoV-2 (PCR) NEGATIVE (NEGATIVE) 03/09/23 03/09/23 03/09/23 Range/Units 12:40 12:40 12:40 WBC 8.8 (4.0-10.5) x10^3/uL RBC 4.47 (4.1-5.4) x10^6/uL Hgb 13.4 (12.0-16.0) g/dL Hct 40.4 (35-47) % MCV 90.4 (78-100) fL MCH 30.0 (26-32) pg MCHC 33.2 (32-36) g/dL RDW 12.0 (11.5-14.0) % Plt Count 163 (150-450) x10^3/uL MPV 9.6 (7.5-11.0) fL Gran % 82.5 H (36.0-66.0) % Immature Gran % (Auto) 0.5 H (0.00-0.4) % Nucleat RBC Rel Count 0.0 (0.00-0.1) % Eos # (Auto) 0.11 (0-0.5) x10^3/uL Immature Gran # (Auto) 0.04 H (0.00-0.03) x10^3u/L Absolute Lymphs (auto) 0.86 L (1.0-4.6) x10^3/uL Absolute Monos (auto) 0.52 (0.0-1.3) x10^3/uL Absolute Nucleated RBC 0.00 (0.00-0.01) x10^3u/L Lymphocytes % 9.7 L (24.0-44.0) % Monocytes % 5.9 (0.0-12.0) % Eosinophils % 1.2 (0.00-5.0) % Basophils % 0.2 (0.0-0.4) % Absolute Granulocytes 7.29 H (1.4-6.9) x10^3/uL Basophils # 0.02 (0-0.4) x10^3/uL D-Dimer (0.0-0.50) mg/L Sodium 138 (137-145) mmol/L Potassium 4.2 (3.5-5.1) mmol/L Chloride 103 (98-107) mmol/L Carbon Dioxide 25 (22-30) mmol/L Anion Gap 13.6 (5-15) MEQ/L BUN 18 H (7-17) mg/dL Creatinine 0.48 L (0.52-1.04) mg/dL Estimated GFR > 60.0 ML/MIN Glucose 125 H (74-106) mg/dL Calcium 9.1 (8.4-10.2) mg/dL Total Bilirubin 0.70 (0.2-1.3) mg/dL AST 34 (14-36) U/L ALT 27 (0-35) U/L Alkaline Phosphatase 70 (38-126) U/L Troponin I < 0.012 (0.000-0.034) ng/mL NT-Pro-B Natriuret Pep (<300) pg/mL Serum Total Protein 7.1 (6.3-8.2) g/dL Albumin 4.4 (3.5-5.0) g/dL Influenza Type A Ag (NEGATIVE) Influenza Type B Ag (NEGATIVE) RSV (PCR) (NEGATIVE) SARS-CoV-2 (PCR) (NEGATIVE) - Progress Progress: improved Air Movement: good Progress Note: Patient is a 67-year-old female presents emergency department for evaluation of chest pain shortness of breath that started this morning. Chest pain radiated to patient's neck. Patient has a history of diabetes hypertension hypercholesterolemia. EKG reveals normal sinus rhythm. No STEMI. Chest x-ray shows chronic changes no acute findings. CBC CMP sent and unremarkable. COVID- negative. D-dimer negative. Initial troponin negative. Patient self administered aspirin at home. She declined morphine in our ED. Nitropaste applied. Heart score is a 4. Patient will be admitted for further evaluation and treatment. Plan of care discussed with patient. She agrees to admission to [facility] for further evaluation and treatment Portions of this note were created with voice recognition technology. There may be grammatical, spelling, punctuation or sound alike errors Complexity of problem addressed is moderate acute complicated No critical care time Complex of data reviewed and analyzed is extensive. Test ordered. Test reviewed and analyzed. Clinical correlation made between laboratory findings imaging findings and history and physical examination. Patient's heart score is a 4. Case and management discussed with who excepts admission to [facility]. Risk of complication and or risk of morbidity/mortality of patient management is high. Patient requires hospitalization for further evaluation and treatment. Time spent admit patient approximately 15 minutes. Vital stable. Plan of care established for shared decision making. Patient voices no other complaints or concerns at this time. Portions of this note were created with voice recognition technology. There may be grammatical, spelling, punctuation or sound alike errors 03/09/23 14:06 Blood Culture(s) Obtained: No Antibiotics given: No Discussed with Dr.: Other ([email or web address]) Will see patient in: hospital (observation) Counseled pt/family regarding: lab results, diagnosis, rad results - Departure Departure Disposition: Observation Clinical Impression: Chest pain, Shortness of breath, ACS (acute coronary syndrome) Condition: Stable Critical Care Time: No Referrals: ALEJO DIAZ MD [Primary Care Provider] - Follow up/PCP as directed Additional Instructions: Discharge/Care Plan FARHEEN OVERTON was seen on 03/09/23 in the Emergency Room. The patient was counseled regarding Diagnosis,Lab results, Imaging studies, need for follow up and when to return to the Emergency Room. Prescriptions given: Discharge Note I have spoken with the patient and/or caregivers. I have explained the patient's condition, diagnosis and treatment plan based on the information available to me at this time. I have answered the patient's and/or caregiver's questions and addressed any concerns. The patient and/or caregivers have as good understanding of the patient's diagnosis, condition and treatment plan as can be expected at this point. The vital signs have been stable. The patient's condition is stable and appropriate for discharge from the emergency department. The patient will pursue further outpatient evaluation with the primary care physician or other designated or consulting physician as outlined in the discharge instructions. The patient and/or caregivers are agreeable to this plan of care and follow-up instructions have been explained in detail. The patient and/or caregivers have received these instruction. The patient/and or caregivers are aware that any significant change in condition or worsening of symptoms should prompt an immediate return to this or the closest emergency department or call 911.
[2023-03-09] MEDS ORDERED: NITRO-BID 2% UD PACKETS ONE (12:43)
[2023-03-09] MEDS ORDERED: MORPHINE SULFATE 4 MG INJ ONE (12:43)
[2023-03-09 12:46] LABS: Absolute Neutrophil Ct (ANC) 7.29 x10^3/uL (1.4-6.9); BASOPHIL % 0.2 % (0.0-0.4); Basophil (Absolute #) 0.02 x10^3/uL (0-0.4); Eosinophil % 1.2 % (0.00-5.0); Eosinophil (Absolute #) 0.11 x10^3/uL (0-0.5); Hematocrit 40.4 % (35-47); Hemoglobin 13.4 g/dL (12.0-16.0); IMMATURE GRAN # 0.04 x10^3u/L (0.00-0.03); IMMATURE GRAN % 0.5 % (0.00-0.4); Lymphocyte (Absolute #) 0.86 x10^3/uL (1.0-4.6); Lymphocytes % 9.7 % (24.0-44.0); Mean Cell Volume 90.4 fL (78-100); Mean Corpuscular Hgb Concent. 33.2 g/dL (32-36); Mean Platelet Volume 9.6 fL (7.5-11.0); Monocyte (Absolute #) 0.52 x10^3/uL (0.0-1.3); Monocytes % 5.9 % (0.0-12.0); Neutrophil % 82.5 % (36.0-66.0); Platelet Count 163 x10^3/uL (150-450); Red Blood Count 4.47 x10^6/uL (4.1-5.4); White Blood Count 8.8 x10^3/uL (4.0-10.5)
[2023-03-09 12:57] LABS: ALBUMIN 4.4 g/dL (3.5-5.0); ALKALINE PHOSPHATASE 70 U/L (38-126); ANION GAP 13.6 MEQ/L (5-15); BLOOD UREA NITROGEN 18 mg/dL (7-17); CHLORIDE 103 mmol/L (98-107); Calcium 9.1 mg/dL (8.4-10.2); Carbon Dioxide 25 mmol/L (22-30); Creatinine 1 0.48 mg/dL (0.52-1.04); EST GLOMERULAR FILTRATION RATE > 60.0 ML/MIN; Glucose 125 mg/dL (74-106); Potassium 4.2 mmol/L (3.5-5.1); SGOT/AST 34 U/L (14-36); SGPT/ALT 27 U/L (0-35); SODIUM 138 mmol/L (137-145); Total Protein 7.1 g/dL (6.3-8.2)
[2023-03-09 13:23] LABS: INFLUENZA A NEGATIVE (NEGATIVE); INFLUENZA B NEGATIVE (NEGATIVE); RESPIRATORY SYNCTIAL VIRUS NEGATIVE (NEGATIVE); SARS-CoV-2 Xpert Express NEGATIVE (NEGATIVE)
--- NOTE | 2023-03-09 15:02 | PCM.HP ---
History of Present Illness - Chief Complaint Chief Complaint: Chest Pain Date: 03/09/23 History of Present Illness: is a 67 year old female with a past medical history of diabetes, hypertension, hypercholesterolemia, and BMI of 39. She presented to our ED with complaints of chest pain and shortness of breath that started approximately 9 AM this morning. Chest pain is substernal and radiates into her neck on the left. She also reports generalized teeth pain. She has no pain with palpation of sinuses. Symptoms have been constant and describes as a dull achy pain. Chest pain worse with deep inspiration and walking. Nothing has made sxs better and nitro paste has gave her a headache now. She did take 325vmg of ASA YARD ENGINEER and this was not helpful. She tried nothing else for her sxs. Denies trauma. No fever. No nausea vomiting or diaphoresis. Denies stress or anxiety at home. Troponin has been negative so far will continue to trend. EKG and chest XR non- concerning. Last BM was this morning and she had no decreased in sxs after. Will start tylenol for pain, she is agreable to this. She declined Morphine in the ER and reports she never takes any type of pain medication. - Review of Systems Constitutional: No Fever, No Chills Eyes: No Symptoms Ears, Nose, & Throat: No Symptoms, Other (generalized teeth pain) Respiratory: Short Of Breath, No Cough Cardiac: Chest Pain (with radiation to left side of neck), No Edema, No Syncope Abdominal/Gastrointestinal: No Abdominal Pain, No Nausea, No Vomiting, No Diarrhea Genitourinary Symptoms: No Dysuria Musculoskeletal: No Back Pain, No Neck Pain Skin: No Rash Neurological: No Dizziness, No Focal Weakness, No Sensory Changes Psychological: No Symptoms Endocrine: No Symptoms Hematologic/Lymphatic: No Symptoms Immunological/Allergic: No Symptoms Medications & Allergies Home Medications: Home Medication List Hydroxyzine HCl 25 mg [Atarax 25 mg] 25 mg PO BID 01/08/15 [History Confirmed 03/09/23] [place]-3S/Dha/Epa/Fish Oil [Fish Oil 1,200 mg Softgel] 1 cap PO DAILY 06/14/16 [History Confirmed 03/09/23] Atorvastatin Calcium [Lipitor] 10 mg PO QHS 07/28/18 [History Confirmed 03/09/23] Aspirin EC 81 mg [Ecotrin 81 mg] 81 mg PO DAILY 03/09/23 [History Confirmed 03/09/23] Lisinopril 10 mg [Zestril 10 MG] 10 mg PO DAILY 03/09/23 [History Confirmed 03/09/23] Metformin HCl 500 mg [Glucophage 500 MG] 500 mg PO BIDWM 03/09/23 [History Confirmed 03/09/23] Multivitamin 1 each PO DAILY 03/09/23 [History Confirmed 03/09/23] Allergies/Adverse Reactions: Allergies Allergy/AdvReac Type Severity Reaction Status Date / Time No Known Drug Allergies Allergy Verified 03/09/23 11:59 - Past Medical History Past Medical History: Yes Neurological History: No Pertinent History ENT History: No Pertinent History Cardiac History: High Cholesterol, Hypertension Respiratory History: No Pertinent History Endocrine Medical History: No Pertinent History Musculoskelatal History: Arthritis, Osteoporosis GI Medical History: No Pertinent History History: No Pertinent History Pyscho-Social History: No Pertinent History Reproductive Disorders: No Pertinent History Comment: Previous R knee scope 8-9 years ago. Also with a L knee scope in the past. - Past Surgical History Past Surgical History: Yes Neuro Surgical History: No Pertinent History Cardiac History: No Pertinent History Respiratory Surgery: No Pertinent History GI Surgical History: Cholecystectomy Genitourinary Surgical Hx: No Pertinent History Musculskeletal Surgical Hx: Orthopedic Surgery Female Surgical History: Hysterectomy Other Surgical History: KNEE SURGERY - Social History Smoking Status: Former smoker Exposure to second hand smoke: No Alcohol: Daily Drug Use: none - Physical Exam Vital Signs: Vital Signs - 24 hr Temp Pulse Resp BP BP Pulse Ox 03/09/23 14:25 96 H 19 148/84 93 L 03/09/23 14:20 96 H 24 94 L 03/09/23 14:17 99 H 19 96 03/09/23 14:10 95 03/09/23 13:32 70 20 159/78 97 03/09/23 13:00 89 22 145/71 96 03/09/23 12:41 95 03/09/23 12:03 22 95 03/09/23 12:02 97.0 F 93 H 22 93/41 96 General Appearance: no apparent distress, alert Neurologic Exam: alert, oriented x 3, cooperative, normal mood/affect, nml ce rebellar function, nml station & gait, sensation nml, No motor deficits Eye Exam: PERRL/EOMI, eyes nml inspection Ears, Nose, Throat Exam: normal ENT inspection, TMs normal, pharynx normal, moist mucous membranes Neck Exam: normal inspection, non-tender, supple, full range of motion Respiratory Exam: normal breath sounds, lungs clear, No respiratory distress Cardiovascular Exam: regular rate/rhythm, normal heart sounds, normal peripheral pulses Gastrointestinal/Abdomen Exam: soft, normal bowel sounds, No tenderness, No mass Back Exam: normal inspection, normal range of motion, No CVA tenderness, No vertebral tenderness Extremity Exam: normal inspection, normal range of motion, pelvis stable Skin Exam: normal color, warm, dry, No rash Lymphatic Exam: No adenopathy Results - Labs Lab/Micro Results: Lab Results-Last 24 Hours 03/09/23 03/09/23 03/09/23 Range/Units 12:40 12:40 12:40 WBC 8.8 (4.0-10.5) x10^3/uL RBC 4.47 (4.1-5.4) x10^6/uL Hgb 13.4 (12.0-16.0) g/dL Hct 40.4 (35-47) % MCV 90.4 (78-100) fL MCH 30.0 (26-32) pg MCHC 33.2 (32-36) g/dL RDW 12.0 (11.5-14.0) % Plt Count 163 (150-450) x10^3/uL MPV 9.6 (7.5-11.0) fL Gran % 82.5 H (36.0-66.0) % Immature Gran % (Auto) 0.5 H (0.00-0.4) % Nucleat RBC Rel Count 0.0 (0.00-0.1) % Eos # (Auto) 0.11 (0-0.5) x10^3/uL Immature Gran # (Auto) 0.04 H (0.00-0.03) x10^3u/L Absolute Lymphs (auto) 0.86 L (1.0-4.6) x10^3/uL Absolute Monos (auto) 0.52 (0.0-1.3) x10^3/uL Absolute Nucleated RBC 0.00 (0.00-0.01) x10^3u/L Lymphocytes % 9.7 L (24.0-44.0) % Monocytes % 5.9 (0.0-12.0) % Eosinophils % 1.2 (0.00-5.0) % Basophils % 0.2 (0.0-0.4) % Absolute Granulocytes 7.29 H (1.4-6.9) x10^3/uL Basophils # 0.02 (0-0.4) x10^3/uL D-Dimer (0.0-0.50) mg/L Sodium 138 (137-145) mmol/L Potassium 4.2 (3.5-5.1) mmol/L Chloride 103 (98-107) mmol/L Carbon Dioxide 25 (22-30) mmol/L Anion Gap 13.6 (5-15) MEQ/L BUN 18 H (7-17) mg/dL Creatinine 0.48 L (0.52-1.04) mg/dL Estimated GFR > 60.0 ML/MIN Glucose 125 H (74-106) mg/dL Calcium 9.1 (8.4-10.2) mg/dL Total Bilirubin 0.70 (0.2-1.3) mg/dL AST 34 (14-36) U/L ALT 27 (0-35) U/L Alkaline Phosphatase 70 (38-126) U/L Troponin I < 0.012 (0.000-0.034) ng/mL NT-Pro-B Natriuret Pep (<300) pg/mL Serum Total Protein 7.1 (6.3-8.2) g/dL Albumin 4.4 (3.5-5.0) g/dL Influenza Type A Ag (NEGATIVE) Influenza Type B Ag (NEGATIVE) RSV (PCR) (NEGATIVE) SARS-CoV-2 (PCR) (NEGATIVE) 03/09/23 03/09/23 03/09/23 Range/Units 12:40 12:40 12:40 WBC (4.0-10.5) x10^3/uL RBC (4.1-5.4) x10^6/uL Hgb (12.0-16.0) g/dL Hct (35-47) % MCV (78-100) fL MCH (26-32) pg MCHC (32-36) g/dL RDW (11.5-14.0) % Plt Count (150-450) x10^3/uL MPV (7.5-11.0) fL Gran % (36.0-66.0) % Immature Gran % (Auto) (0.00-0.4) % Nucleat RBC Rel Count (0.00-0.1) % Eos # (Auto) (0-0.5) x10^3/uL Immature Gran # (Auto) (0.00-0.03) x10^3u/L Absolute Lymphs (auto) (1.0-4.6) x10^3/uL Absolute Monos (auto) (0.0-1.3) x10^3/uL Absolute Nucleated RBC (0.00-0.01) x10^3u/L Lymphocytes % (24.0-44.0) % Monocytes % (0.0-12.0) % Eosinophils % (0.00-5.0) % Basophils % (0.0-0.4) % Absolute Granulocytes (1.4-6.9) x10^3/uL Basophils # (0-0.4) x10^3/uL D-Dimer 0.42 (0.0-0.50) mg/L Sodium (137-145) mmol/L Potassium (3.5-5.1) mmol/L Chloride (98-107) mmol/L Carbon Dioxide (22-30) mmol/L Anion Gap (5-15) MEQ/L BUN (7-17) mg/dL Creatinine (0.52-1.04) mg/dL Estimated GFR ML/MIN Glucose (74-106) mg/dL Calcium (8.4-10.2) mg/dL Total Bilirubin (0.2-1.3) mg/dL AST (14-36) U/L ALT (0-35) U/L Alkaline Phosphatase (38-126) U/L Troponin I (0.000-0.034) ng/mL NT-Pro-B Natriuret Pep 60.4 (<300) pg/mL Serum Total Protein (6.3-8.2) g/dL Albumin (3.5-5.0) g/dL Influenza Type A Ag NEGATIVE (NEGATIVE) Influenza Type B Ag NEGATIVE (NEGATIVE) RSV (PCR) NEGATIVE (NEGATIVE) SARS-CoV-2 (PCR) NEGATIVE (NEGATIVE) - Radiology Impressions Radiology Exams & Impressions: Radiology Procedures Category Date Time Status CHEST 1 VIEW (PORTABLE) Stat Exams 03/09/23 12:13 Completed Assessment/Plan (1) Chest pain Current Visit: Yes Status: Acute Assessment & Plan: - Trop x3, 1st trop negative - 325mg ASA YARD ENGINEER - Chest XR- negative - D-dimer negative - refused morphine in ER - Nitro paste started in ER - will need OP cardiology f/u - send home on event monitor - EKG reviewed. - Start pepcid 20mg BID - tylenol for headache post nitro paste. Code(s): R07.9 - CHEST PAIN, UNSPECIFIED (2) Shortness of breath Current Visit: Yes Status: Acute Assessment & Plan: - RT eval and treat - Oxygen PRN - Chest XR reviewed Code(s): R06.02 - SHORTNESS OF BREATH (3) Hypertension Current Visit: Yes Status: Acute Assessment & Plan: - stable - cont home meds - She did take her home meds this morning Code(s): I10 - ESSENTIAL (PRIMARY) HYPERTENSION (4) Hyperlipidemia Current Visit: Yes Status: Acute Assessment & Plan: - continue statin Code(s): E78.5 - HYPERLIPIDEMIA, UNSPECIFIED (5) Obesity Current Visit: Yes Status: Acute Assessment & Plan: - advised diet control Code(s): E66.9 - OBESITY, UNSPECIFIED (6) Diabetes mellitus treated with oral medication Current Visit: Yes Status: Acute Assessment & Plan: - continue metformin Code(s): E11.9 - TYPE 2 DIABETES MELLITUS WITHOUT COMPLICATIONS; Z79.84 - DATA REVIEW SPECIALIST (CURRENT) USE OF ORAL HYPOGLYCEMIC DRUGS Telemedicine Encounter - Telemedicine Encounter Telemedicine Encounter: The entirety of this encounter was performed via Telemedicine"
[2023-03-09] MEDS ORDERED: TYLENOL EXTRA STRENGTH 500 MG PO PRN (16:29)
[2023-03-09] MEDS ORDERED: TYLENOL EXTRA STRENGTH 500 MG PO ONE (16:30)
[2023-03-09] MEDS: Pepcid 20 MG PO SCH (21:11)
[2023-03-09] MEDS: TYLENOL 325 MG PO PRN (21:11)
[2023-03-10 06:36] LABS: Hematocrit 36.1 % (35-47); Mean Cell Volume 91.2 fL (78-100); Mean Corpuscular Hemoglobin 30.3 pg (26-32); Mean Corpuscular Hgb Concent. 33.2 g/dL (32-36); Mean Platelet Volume 9.5 fL (7.5-11.0); Platelet Count 161 x10^3/uL (150-450); Red Blood Count 3.96 x10^6/uL (4.1-5.4); Red Cell Distribution Width 12.2 % (11.5-14.0); White Blood Count 7.6 x10^3/uL (4.0-10.5)
[2023-03-10 07:04] VITALS: O2SAT 93
[2023-03-10 07:06] LABS: ALBUMIN 4.1 g/dL (3.5-5.0); ALKALINE PHOSPHATASE 48 U/L (38-126); ANION GAP 13.7 MEQ/L (5-15); BLOOD UREA NITROGEN 13 mg/dL (7-17); CHLORIDE 101 mmol/L (98-107); Calcium 8.9 mg/dL (8.4-10.2); Carbon Dioxide 26 mmol/L (22-30); Creatinine 1 0.51 mg/dL (0.52-1.04); EST GLOMERULAR FILTRATION RATE > 60.0 ML/MIN; Glucose 169 mg/dL (74-106); Potassium 3.8 mmol/L (3.5-5.1); SGOT/AST 26 U/L (14-36); SGPT/ALT 26 U/L (0-35); SODIUM 136 mmol/L (137-145); Total Protein 6.8 g/dL (6.3-8.2)
[2023-03-10] MEDS: TYLENOL 325 MG PO PRN (07:19)
[2023-03-10 07:45] VITALS: RESP 18
[2023-03-10] MEDS ORDERED: Glucophage 500 MG PO SCH (08:00)
[2023-03-10] MEDS: Pepcid 20 MG PO SCH (09:32)
[2023-03-10] MEDS ORDERED: FISH OIL PO SCH (10:00)
[2023-03-10] MEDS ORDERED: NON-FORMULARY ITEM (Multivitamin [Multivitamin] 1 EACH Tablet) PO SCH (10:00)
[2023-03-10] MEDS ORDERED: OMEGA PO SCH (10:00)
[2023-03-10] MEDS ORDERED: [UNRECOGNIZED DRUG - OTHER] PO SCH (10:00)
[2023-03-10] MEDS ORDERED: EPA PO SCH (10:00)
[2023-03-10] MEDS ORDERED: DHA PO SCH (10:00)
[2023-03-10] MEDS ORDERED: ATARAX 25 MG PO SCH (10:00)
[2023-03-10] MEDS ORDERED: FISH OIL 1,000 MG CAPSULE PO SCH (10:00)
[2023-03-10] MEDS ORDERED: THERAGRAN MULTIVITAMIN PO SCH (10:00)
[2023-03-10] MEDS ORDERED: Zestril 10 MG PO SCH (10:00)
[2023-03-10] MEDS ORDERED: ECOTRIN 81 MG PO SCH (10:00)
--- NOTE | 2023-03-10 11:05 | PCM.DS ---
Discharge Summary Date of Admission: 03/09/23 14:28 Date of Discharge: 03/10/23 Admitting Physician: AMANDA MCCAIN MD Primary Care Provider: ALEJO DIAZ <SANDRA COLLADO - Last Filed: 03/10/23 10:59> Date of Admission: 03/09/23 14:28 Date of Discharge: 03/10/23 Admitting Physician: AMANDA MCCAIN MD Primary Care Provider: ALEJO DIAZ <AMANDA MCCAIN - Last Filed: 03/10/23 13:51> Allergies <SANDRA COLLADO - Last Filed: 03/10/23 10:59> <AMANDA MCCAIN - Last Filed: 03/10/23 13:51> Allergies No Known Drug Allergies Allergy (Verified 03/09/23 11:59) Hospital Summary - Hospital Course Hospital Course: 03/09/23 is a 67 year old female with a past medical history of diabetes, hypertension, hypercholesterolemia, and BMI of 39. She presented to our ED with complaints of chest pain and shortness of breath that started approximately 9 AM this morning. Chest pain is substernal and radiates into her neck on the left. She also reports generalized teeth pain. She has no pain with palpation of sinuses. Symptoms have been constant and describes as a dull achy pain. Chest pain worse with deep inspiration and walking. Nothing has made sxs better and nitro paste has gave her a headache now. She did take 325vmg of [employer] and this was not helpful. She tried nothing else for her sxs. Denies trauma. No fever. No nausea vomiting or diaphoresis. Denies stress or anxiety at home. Troponin has been negative so far will continue to trend. EKG and chest XR non- concerning. Last BM was this morning and she had no decreased in sxs after. Will start tylenol for pain, she is agreable to this. She declined Morphine in the ER and reports she never takes any type of pain medication. 03/10 Pt explains she is feeling much better today and would like to go home. She explained she feels she had a heavy dinner the night before and then went to bed and may have had some food stuck. She woke up in the middle of the night last night and had some sprite and now her sxs are almost gone. She has some slight discomfort when touching sternum but all other sxs are gone. Trop X3 negative. Labs non-concerning, and vitals stable. She denies CP, SOB, Abd. pain, N/V/D. - Vitals & Intake/Output Vital Signs: Vital Signs Temperature 98.7 F 03/10/23 07:44 Pulse Rate 91 H 03/10/23 07:44 Respiratory Rate 18 03/10/23 07:44 Blood Pressure 128/60 03/10/23 07:44 O2 Sat by Pulse Oximetry 93 L 03/10/23 07:44 Intake & Output: Intake & Output 03/07/23 03/08/23 03/09/23 03/10/23 11:59 11:59 11:59 11:59 Intake Total 720 Balance 720 Weight 96.2 kg - Lab Result Diagrams: 03/10/23 06:17 03/10/23 06:17 Lab Results-Last 24 Hrs: Lab Results-Last 24 Hours 03/09/23 03/09/23 03/09/23 Range/Units 04:20 12:40 12:40 WBC 8.8 (4.0-10.5) x10^3/uL RBC 4.47 (4.1-5.4) x10^6/uL Hgb 13.4 (12.0-16.0) g/dL Hct 40.4 (35-47) % MCV 90.4 (78-100) fL MCH 30.0 (26-32) pg MCHC 33.2 (32-36) g/dL RDW 12.0 (11.5-14.0) % Plt Count 163 (150-450) x10^3/uL MPV 9.6 (7.5-11.0) fL Gran % 82.5 H (36.0-66.0) % Immature Gran % (Auto) 0.5 H (0.00-0.4) % Nucleat RBC Rel Count 0.0 (0.00-0.1) % Eos # (Auto) 0.11 (0-0.5) x10^3/uL Immature Gran # (Auto) 0.04 H (0.00-0.03) x10^3u/L Absolute Lymphs (auto) 0.86 L (1.0-4.6) x10^3/uL Absolute Monos (auto) 0.52 (0.0-1.3) x10^3/uL Absolute Nucleated RBC 0.00 (0.00-0.01) x10^3u/L Lymphocytes % 9.7 L (24.0-44.0) % Monocytes % 5.9 (0.0-12.0) % Eosinophils % 1.2 (0.00-5.0) % Basophils % 0.2 (0.0-0.4) % Absolute Granulocytes 7.29 H (1.4-6.9) x10^3/uL Basophils # 0.02 (0-0.4) x10^3/uL D-Dimer (0.0-0.50) mg/L Sodium 138 (137-145) mmol/L Potassium 4.2 (3.5-5.1) mmol/L Chloride 103 (98-107) mmol/L Carbon Dioxide 25 (22-30) mmol/L Anion Gap 13.6 (5-15) MEQ/L BUN 18 H (7-17) mg/dL Creatinine 0.48 L (0.52-1.04) mg/dL Estimated GFR > 60.0 ML/MIN Glucose 125 H (74-106) mg/dL Calcium 9.1 (8.4-10.2) mg/dL Total Bilirubin 0.70 (0.2-1.3) mg/dL AST 34 (14-36) U/L ALT 27 (0-35) U/L Alkaline Phosphatase 70 (38-126) U/L Troponin I < 0.012 (0.000-0.034) ng/mL NT-Pro-B Natriuret Pep (<300) pg/mL Serum Total Protein 7.1 (6.3-8.2) g/dL Albumin 4.4 (3.5-5.0) g/dL Influenza Type A Ag (NEGATIVE) Influenza Type B Ag (NEGATIVE) RSV (PCR) (NEGATIVE) SARS-CoV-2 (PCR) (NEGATIVE) 03/09/23 03/09/23 03/09/23 Range/Units 12:40 12:40 12:40 WBC (4.0-10.5) x10^3/uL RBC (4.1-5.4) x10^6/uL Hgb (12.0-16.0) g/dL Hct (35-47) % MCV (78-100) fL MCH (26-32) pg MCHC (32-36) g/dL RDW (11.5-14.0) % Plt Count (150-450) x10^3/uL MPV (7.5-11.0) fL Gran % (36.0-66.0) % Immature Gran % (Auto) (0.00-0.4) % Nucleat RBC Rel Count (0.00-0.1) % Eos # (Auto) (0-0.5) x10^3/uL Immature Gran # (Auto) (0.00-0.03) x10^3u/L Absolute Lymphs (auto) (1.0-4.6) x10^3/uL Absolute Monos (auto) (0.0-1.3) x10^3/uL Absolute Nucleated RBC (0.00-0.01) x10^3u/L Lymphocytes % (24.0-44.0) % Monocytes % (0.0-12.0) % Eosinophils % (0.00-5.0) % Basophils % (0.0-0.4) % Absolute Granulocytes (1.4-6.9) x10^3/uL Basophils # (0-0.4) x10^3/uL D-Dimer 0.42 (0.0-0.50) mg/L Sodium (137-145) mmol/L Potassium (3.5-5.1) mmol/L Chloride (98-107) mmol/L Carbon Dioxide (22-30) mmol/L Anion Gap (5-15) MEQ/L BUN (7-17) mg/dL Creatinine (0.52-1.04) mg/dL Estimated GFR ML/MIN Glucose (74-106) mg/dL Calcium (8.4-10.2) mg/dL Total Bilirubin (0.2-1.3) mg/dL AST (14-36) U/L ALT (0-35) U/L Alkaline Phosphatase (38-126) U/L Troponin I < 0.012 (0.000-0.034) ng/mL NT-Pro-B Natriuret Pep 60.4 (<300) pg/mL Serum Total Protein (6.3-8.2) g/dL Albumin (3.5-5.0) g/dL Influenza Type A Ag (NEGATIVE) Influenza Type B Ag (NEGATIVE) RSV (PCR) (NEGATIVE) SARS-CoV-2 (PCR) (NEGATIVE) 03/09/23 03/09/23 03/10/23 Range/Units 12:40 20:25 06:17 WBC 7.6 (4.0-10.5) x10^3/uL RBC 3.96 L (4.1-5.4) x10^6/uL Hgb 12.0 (12.0-16.0) g/dL Hct 36.1 (35-47) % MCV 91.2 (78-100) fL MCH 30.3 (26-32) pg MCHC 33.2 (32-36) g/dL RDW 12.2 (11.5-14.0) % Plt Count 161 (150-450) x10^3/uL MPV 9.5 (7.5-11.0) fL Gran % (36.0-66.0) % Immature Gran % (Auto) (0.00-0.4) % Nucleat RBC Rel Count (0.00-0.1) % Eos # (Auto) (0-0.5) x10^3/uL Immature Gran # (Auto) (0.00-0.03) x10^3u/L Absolute Lymphs (auto) (1.0-4.6) x10^3/uL Absolute Monos (auto) (0.0-1.3) x10^3/uL Absolute Nucleated RBC (0.00-0.01) x10^3u/L Lymphocytes % (24.0-44.0) % Monocytes % (0.0-12.0) % Eosinophils % (0.00-5.0) % Basophils % (0.0-0.4) % Absolute Granulocytes (1.4-6.9) x10^3/uL Basophils # (0-0.4) x10^3/uL D-Dimer (0.0-0.50) mg/L Sodium (137-145) mmol/L Potassium (3.5-5.1) mmol/L Chloride (98-107) mmol/L Carbon Dioxide (22-30) mmol/L Anion Gap (5-15) MEQ/L BUN (7-17) mg/dL Creatinine (0.52-1.04) mg/dL Estimated GFR ML/MIN Glucose (74-106) mg/dL Calcium (8.4-10.2) mg/dL Total Bilirubin (0.2-1.3) mg/dL AST (14-36) U/L ALT (0-35) U/L Alkaline Phosphatase (38-126) U/L Troponin I < 0.012 (0.000-0.034) ng/mL NT-Pro-B Natriuret Pep (<300) pg/mL Serum Total Protein (6.3-8.2) g/dL Albumin (3.5-5.0) g/dL Influenza Type A Ag NEGATIVE (NEGATIVE) Influenza Type B Ag NEGATIVE (NEGATIVE) RSV (PCR) NEGATIVE (NEGATIVE) SARS-CoV-2 (PCR) NEGATIVE (NEGATIVE) 03/10/23 Range/Units 06:17 WBC (4.0-10.5) x10^3/uL RBC (4.1-5.4) x10^6/uL Hgb (12.0-16.0) g/dL Hct (35-47) % MCV (78-100) fL MCH (26-32) pg MCHC (32-36) g/dL RDW (11.5-14.0) % Plt Count (150-450) x10^3/uL MPV (7.5-11.0) fL Gran % (36.0-66.0) % Immature Gran % (Auto) (0.00-0.4) % Nucleat RBC Rel Count (0.00-0.1) % Eos # (Auto) (0-0.5) x10^3/uL Immature Gran # (Auto) (0.00-0.03) x10^3u/L Absolute Lymphs (auto) (1.0-4.6) x10^3/uL Absolute Monos (auto) (0.0-1.3) x10^3/uL Absolute Nucleated RBC (0.00-0.01) x10^3u/L Lymphocytes % (24.0-44.0) % Monocytes % (0.0-12.0) % Eosinophils % (0.00-5.0) % Basophils % (0.0-0.4) % Absolute Granulocytes (1.4-6.9) x10^3/uL Basophils # (0-0.4) x10^3/uL D-Dimer (0.0-0.50) mg/L Sodium 136 L (137-145) mmol/L Potassium 3.8 (3.5-5.1) mmol/L Chloride 101 (98-107) mmol/L Carbon Dioxide 26 (22-30) mmol/L Anion Gap 13.7 (5-15) MEQ/L BUN 13 (7-17) mg/dL Creatinine 0.51 L (0.52-1.04) mg/dL Estimated GFR > 60.0 ML/MIN Glucose 169 H (74-106) mg/dL Calcium 8.9 (8.4-10.2) mg/dL Total Bilirubin 0.90 (0.2-1.3) mg/dL AST 26 (14-36) U/L ALT 26 (0-35) U/L Alkaline Phosphatase 48 (38-126) U/L Troponin I (0.000-0.034) ng/mL NT-Pro-B Natriuret Pep (<300) pg/mL Serum Total Protein 6.8 (6.3-8.2) g/dL Albumin 4.1 (3.5-5.0) g/dL Influenza Type A Ag (NEGATIVE) Influenza Type B Ag (NEGATIVE) RSV (PCR) (NEGATIVE) SARS-CoV-2 (PCR) (NEGATIVE) - Radiology Exams Ordered Rad Exams-Entire Visit: Radiology Procedures Category Date Time Status CHEST 1 VIEW (PORTABLE) Stat Exams 03/09/23 12:13 Completed - Procedures and Test Procedures and Tests throughout Hospitalization: Therapy Orders & Screens 03/09/23 15:30 Respiratory Therapy Consult ROUTINE Comment: Reason For Exam: eval and treat for SOB Diagnosis: Chest Pain 03/09/23 16:45 Oxygen NASAL CANNULA 2 lpm Comment: Diagnosis: Chest Pain <SANDRA COLLADO - Last Filed: 03/10/23 10:59> - Vitals & Intake/Output Vital Signs: Vital Signs Temperature 97.3 F 03/10/23 11:41 Pulse Rate 86 09/16/23 11:41 Respiratory Rate 18 03/10/23 11:41 Blood Pressure 124/60 03/10/23 11:41 O2 Sat by Pulse Oximetry 93 L 03/10/23 11:41 Intake & Output: Intake & Output 03/08/23 03/09/23 03/10/23 03/11/23 11:59 11:59 11:59 11:59 Intake Total 720 Balance 720 Weight 96.2 kg - Lab Result Diagrams: 03/10/23 06:17 03/10/23 06:17 Lab Results-Last 24 Hrs: Lab Results-Last 24 Hours 03/09/23 03/09/23 03/10/23 Range/Units 04:20 20:25 06:17 WBC 7.6 (4.0-10.5) x10^3/uL RBC 3.96 L (4.1-5.4) x10^6/uL Hgb 12.0 (12.0-16.0) g/dL Hct 36.1 (35-47) % MCV 91.2 (78-100) fL MCH 30.3 (26-32) pg MCHC 33.2 (32-36) g/dL RDW 12.2 (11.5-14.0) % Plt Count 161 (150-450) x10^3/uL MPV 9.5 (7.5-11.0) fL Sodium (137-145) mmol/L Potassium (3.5-5.1) mmol/L Chloride (98-107) mmol/L Carbon Dioxide (22-30) mmol/L Anion Gap (5-15) MEQ/L BUN (7-17) mg/dL Creatinine (0.52-1.04) mg/dL Estimated GFR ML/MIN Glucose (74-106) mg/dL Calcium (8.4-10.2) mg/dL Total Bilirubin (0.2-1.3) mg/dL AST (14-36) U/L ALT (0-35) U/L Alkaline Phosphatase (38-126) U/L Troponin I < 0.012 < 0.012 (0.000-0.034) ng/mL Serum Total Protein (6.3-8.2) g/dL Albumin (3.5-5.0) g/dL 03/10/23 Range/Units 06:17 WBC (4.0-10.5) x10^3/uL RBC (4.1-5.4) x10^6/uL Hgb (12.0-16.0) g/dL Hct (35-47) % MCV (78-100) fL MCH (26-32) pg MCHC (32-36) g/dL RDW (11.5-14.0) % Plt Count (150-450) x10^3/uL MPV (7.5-11.0) fL Sodium 136 L (137-145) mmol/L Potassium 3.8 (3.5-5.1) mmol/L Chloride 101 (98-107) mmol/L Carbon Dioxide 26 (22-30) mmol/L Anion Gap 13.7 (5-15) MEQ/L BUN 13 (7-17) mg/dL Creatinine 0.51 L (0.52-1.04) mg/dL Estimated GFR > 60.0 ML/MIN Glucose 169 H (74-106) mg/dL Calcium 8.9 (8.4-10.2) mg/dL Total Bilirubin 0.90 (0.2-1.3) mg/dL AST 26 (14-36) U/L ALT 26 (0-35) U/L Alkaline Phosphatase 48 (38-126) U/L Troponin I (0.000-0.034) ng/mL Serum Total Protein 6.8 (6.3-8.2) g/dL Albumin 4.1 (3.5-5.0) g/dL - Radiology Exams Ordered Rad Exams-Entire Visit: Radiology Procedures Category Date Time Status CHEST 1 VIEW (PORTABLE) Stat Exams 03/09/23 12:13 Completed - Procedures and Test Procedures and Tests throughout Hospitalization: Therapy Orders & Screens 03/09/23 15:30 Respiratory Therapy Consult ROUTINE Comment: Reason For Exam: eval and treat for SOB Diagnosis: Chest Pain 03/09/23 16:45 Oxygen NASAL CANNULA 2 lpm Comment: Diagnosis: Chest Pain <AMANDA MCCAIN - Last Filed: 03/10/23 13:51> Discharge Exam General Appearance: no apparent distress, alert Neurologic Exam: alert, oriented x 3, cooperative, normal mood/affect, nml cere bellar function, sensation nml, No motor deficits Eye Exam: PERRL, EOMI, eyes nml inspection Ears, Nose, Throat Exam: normal ENT inspection, pharynx normal, moist mucous membranes Neck Exam: normal inspection, non-tender, supple, full range of motion Respiratory Exam: normal breath sounds, lungs clear, No respiratory distress Cardiovascular Exam: regular rate/rhythm, normal heart sounds Gastrointestinal/Abdomen Exam: soft, No tenderness, No mass Pelvic Exam: deferred Rectal Exam: deferred Back Exam: normal inspection, normal range of motion, No CVA tenderness, No vertebral tenderness Extremity Exam: normal inspection, normal range of motion Skin Exam: normal color, warm, dry <SANDRA COLLADO - Last Filed: 03/10/23 10:59> Final Diagnosis/Problem List - Final Discharge Diagnosis/Problem (1) Chest pain Status: Acute Code(s): R07.9 - CHEST PAIN, UNSPECIFIED (2) Shortness of breath Status: Acute Code(s): R06.02 - SHORTNESS OF BREATH (3) Hypertension Status: Acute Code(s): I10 - ESSENTIAL (PRIMARY) HYPERTENSION (4) Hyperlipidemia Status: Acute Code(s): E78.5 - HYPERLIPIDEMIA, UNSPECIFIED (5) Obesity Status: Acute Code(s): E66.9 - OBESITY, UNSPECIFIED (6) Diabetes mellitus treated with oral medication Status: Acute Assessment & Plan: (1) Chest pain Current Visit: Yes Status: Acute Assessment & Plan: - Trop x3 negative - 325mg [employer] - Chest XR- negative - D-dimer negative - refused morphine in ER - Nitro paste started in ER - will need OP cardiology f/u - send home on event monitor - EKG reviewed. - Start pepcid 20mg BID - tylenol for headache post nitro paste. 03/10 - sxs resolved Code(s): R07.9 - CHEST PAIN, UNSPECIFIED (2) Shortness of breath Current Visit: Yes Status: Acute Assessment & Plan: - RT eval and treat - Oxygen PRN - Chest XR reviewed 03/10 - resolved Code(s): R06.02 - SHORTNESS OF BREATH (3) Hypertension Current Visit: Yes Status: Acute Assessment & Plan: - stable - cont home meds - She did take her home meds this morning 03/10 - stable Code(s): I10 - ESSENTIAL (PRIMARY) HYPERTENSION (4) Hyperlipidemia Current Visit: Yes Status: Acute Assessment & Plan: - continue statin Code(s): E78.5 - HYPERLIPIDEMIA, UNSPECIFIED (5) Obesity Current Visit: Yes Status: Acute Assessment & Plan: - advised diet control Code(s): E66.9 - OBESITY, UNSPECIFIED (6) Diabetes mellitus treated with oral medication Current Visit: Yes Status: Acute Assessment & Plan: - continue metformin Code(s): E11.9 - TYPE 2 DIABETES MELLITUS WITHOUT COMPLICATIONS; Z79.84 - LONGTERM (CURRENT) USE OF ORAL HYPOGLYCEMIC DRUGS <SANDRA COLLADO - Last Filed: 03/10/23 10:59> - Discharge Discharge Date: 03/10/23 <SANDRA COLLADO - Last Filed: 03/10/23 10:59> <AMANDA MCCAIN - Last Filed: 03/10/23 13:51> - Discharge Disposition: Home, Self-Care Condition: Stable Prescriptions: New Famotidine 20 mg [Pepcid 20 MG] 20 mg PO BID 30 Days #60 tablet Continue Hydroxyzine HCl 25 mg [Atarax 25 mg] 25 mg PO BID [place]-3S/Dha/Epa/Fish Oil [Fish Oil 1,200 mg Softgel] 1 cap PO DAILY Atorvastatin Calcium [Lipitor] 10 mg PO QHS Lisinopril 10 mg [Zestril 10 MG] 10 mg PO DAILY Metformin HCl 500 mg [Glucophage 500 MG] 500 mg PO BIDWM Aspirin EC 81 mg [Ecotrin 81 mg] 81 mg PO DAILY Multivitamin 1 each PO DAILY Instructions: Chest Pain, Famotidine Additional Instructions: Start Pepcid for GI upset twice daily. Follow up with PCP this week. Follow up with: ALEJO DIAZ MD [Primary Care Provider] - Call for Appointment (CALL SUNDAY FOR A 1 WEEK FOLLOW-UP APPOINTMENT. ) Forms: Discharge Instructions
[2023-03-10 11:42] VITALS: BP 124/60; PULSE 86; TEMP 97.3
[2023-03-10] MEDS ORDERED: Zocor 10MG PO SCH (22:00)
[2023-03-10] MEDS ORDERED: NON-FORMULARY ITEM (Atorvastatin Calcium [Lipitor] 10 MG Tablet) PO SCH (22:00)
== END 2023-03-10 13:00 | disposition home or self-care (01) ==
LOC: ED 11:55 → MED SURG 14:28
PROVIDERS: ADMIT Internal Medicine; ATTEND Internal Medicine
DX: R07.9 Chest pain, unspecified (principal); R06.02 Shortness of breath; I10 Essential (primary) hypertension; E78.5 Hyperlipidemia, unspecified; E66.9 Obesity, unspecified; E11.9 Type 2 diabetes mellitus without complications; K13.79 Other lesions of oral mucosa; Z79.899 Other long term (current) drug therapy; Z20.828 Contact with and (suspected) exposure to other viral communicable diseases
CPT/HCPCS: 0241U; 36000; 36415; 71045; 80053; 83880; 84484; 85025; 85027; 85379; 93005; 93041; 93268; 94760; 94762; 99284; G0378; J2270; A9270-GY

== ENCOUNTER 2024-07-26 20:58 | Emergency (ER) | payer MEDICARE ==
[2024-07-26 21:09] VITALS: TEMP 97.4
--- NOTE | 2024-07-26 21:33 | ERPHSYRPT ---
- History of Present Illness Time Seen by Provider: 07/26/24 21:32 Source: patient, family Exam Limitations: no limitations Patient Subjective Stated Complaint: C/O SOB and cough for a few weeks Triage Nursing Assessment: Patient arrived by ambulance. She is alert and oriented. Duoneb being actively administered upon arrival; no SOB noted. Patient has a forceful, dry, non-productive cough. She is hoarse. Moving independently in bed. RT at bedside upon patient arrival to listen to patient's lung sounds. Physician History: pt states a problem getting air in and Pt had onset of Discussed with pt and available family risks and benefits of testing/Tx including CBC, CMP, EKG, Trop, BNP, D-dimer, UA, Amylase, Lipase, CT , CXR, swabs for Covid, RSV, Flu and Strep, pain med, Antibiotic and they wish to proceed so these are ordered. Results discussed with pt and available family. Allergies/Adverse Reactions: No Known Drug Allergies Allergy (Verified 07/26/24 21:06) Home Medications: Hydroxyzine HCl 25 mg [Atarax 25 mg] 25 mg PO BID 01/08/15 [History] [place]-3S/Dha/Epa/Fish Oil [Fish Oil 1,200 mg Softgel] 1,000 mg PO HS 06/14/16 [History] Aspirin EC 81 mg [Ecotrin 81 mg] 81 mg PO DAILY 03/09/23 [History] Lisinopril 10 mg [Zestril 10 MG] 10 mg PO DAILY 03/09/23 [History] Metformin HCl 500 mg [Glucophage 500 MG] 500 mg PO BID 03/09/23 [History] Multivitamin 1 tab PO HS 03/09/23 [History] Atorvastatin Calcium 40 mg PO HS 07/26/24 [History] Carvedilol 3.125 mg [Coreg 3.125 MG] 3.125 mg PO BID 07/26/24 [History] Cholecalciferol (Vitamin D3) [Vitamin D3] 50 mcg PO HS 07/26/24 [History] Ezetimibe 10 mg [Zetia 10 MG] 10 mg PO HS 07/26/24 [History] Lutein [Natural Lutein] 20 mg PO DAILY 07/26/24 [History] Ubidecarenone/Vit E Acet [Co Q-10 100 mg Softgel] 1 cap PO HS 07/26/24 [History] Hx Tetanus, Diphtheria Vaccination/Date Given: Yes Hx Influenza Vaccination/Date Given: No Hx Pneumococcal Vaccination/Date Given: No (06/20/2016) Immunizations Up to Date: No Travel Risk - International Travel Have you traveled outside of the country in past 3 weeks: No - Emerging Infectious Disease Are you exhibiting symptoms associated with any current EIDs: Yes Symptoms: Cough: New Onset, Shortness of Breath - Past Medical History Pertinent Past Medical History: Yes Neurological History: No Pertinent History ENT History: No Pertinent History Cardiac History: High Cholesterol, Hypertension Respiratory History: No Pertinent History Endocrine Medical History: Diabetes Type II Musculoskeletal History: Arthritis, Osteoporosis GI Medical History: No Pertinent History History: No Pertinent History Psycho-Social History: No Pertinent History Female Reproductive Disorders: No Pertinent History Other Medical History: Previous R knee scope 8-9 years ago. Also with a L knee scope in the past. - Past Surgical History Past Surgical History: Yes Neuro Surgical History: No Pertinent History Cardiac: No Pertinent History Respiratory: No Pertinent History Gastrointestinal: Cholecystectomy Genitourinary: No Pertinent History Musculoskeletal: Orthopedic Surgery Female Surgical History: Hysterectomy Other Surgical History: KNEE SURGERY - Social History Smoking Status: Former smoker Exposure to second hand smoke: No Drug Use: none Patient Lives Alone: No - Social Determinants of Health Will the patient participate in the screening: Yes Do you worry about a steady place to live?: No Do you have any problems with any of the following?: No known problems In the past 12 months,have you had to go without utilities?: No Transportation Issues: No Has anyone in your support network made you feel unsafe?: No Have you or anyone in your house had to go without enough: No - Nursing Vital Signs Nursing Vital Signs: Initial Vital Signs Temperature 97.4 F 07/26/24 21:02 Pulse Rate 95 H 07/26/24 21:02 Respiratory Rate 20 07/26/24 21:02 Blood Pressure 148/95 07/26/24 21:02 O2 Sat by Pulse Oximetry 99 07/26/24 21:02 Pain Scale Pain Intensity 0 - Physical Exam SpO2: 99 - Course Nursing assessment & vital signs reviewed: Yes EKG Interpreted by Me: Sinus Rhythm, NORMAL AXIS, NORMAL INTERVALS, NORMAL ST-T, Other (low voltage ) - CT Exams Chest CT Interpretation: Tele-radiologist Report, No PE, Other (no infiltrates, some hilar nodes.) Ordered Tests: Active Orders 24 hr Category Date Time Status Raw Material Planner STAT Care 07/26/24 21:39 Active EKG-ER Only STAT Care 07/26/24 21:13 Active IV Insertion STAT Care 07/26/24 21:38 Active IV Insertion-2nd Peripheral STAT Care 07/27/24 00:53 Active Pulse Oximetry (ED) STAT Care 07/26/24 21:38 Active CHEST WITH CONTRAST [CT] Stat Exams 07/26/24 21:37 Completed NECK WO CONTRAST [CT] Stat Exams 07/26/24 21:36 Completed CBC W DIFF Stat Lab 07/26/24 21:56 Completed CMP Stat Lab 07/26/24 21:56 Completed D-DIMER QUANTITATIVE Stat Lab 07/26/24 21:56 Completed Lactic Acid Stat Lab 07/26/24 21:50 Completed Lactic Acid Stat Lab 07/26/24 23:58 Received NT PRO BNPII Stat Lab 07/26/24 21:56 Completed TROPONIN Q4H Lab 07/26/24 21:56 Completed TROPONIN Q4H Lab 07/27/24 01:45 Ordered TROPONIN Q4H Lab 07/27/24 05:45 Ordered UA W/RFX UR CULTURE Stat Lab 07/26/24 23:14 Completed Medication Summary Discontinued Medications Generic Name Dose Route Start Last Admin Trade Name Freq PRN Reason Stop Dose Admin Ceftriaxone Sodium 1 gm in 100 mls @ 200 mls/hr 07/26/24 21:38 07/26/24 23:43 Rocephin 1 Gm / 100 Ml Nacl IV 07/26/24 22:07 Infused STAT ONE Infusion Ceftriaxone Sodium Confirm 07/26/24 22:55 Rocephin 1 Gm / 100 Ml Nacl Administered 07/26/24 22:56 Dose 1 gm in 100 mls @ ud IV .STK-MED ONE Lab/Rad Data: Laboratory Result Diagrams 07/26/24 21:56 07/26/24 21:56 Laboratory Results 07/26/24 07/26/24 07/26/24 Range/Units 23:14 21:56 21:56 WBC (3.98-10.04) x10^3/uL RBC (3.93-5.22) x10^6/uL Hgb (11.2-15.7) g/dL Hct (34.1-44.9) % MCV (79.4-94.8) fL MCH (25.6-32.2) pg MCHC (32.2-35.5) g/dL RDW (11.7-14.4) % Plt Count (182-369) x10^3/uL MPV (9.4-12.3) fL Gran % (34.0-71.1) % Immature Gran % (Auto) (0.001-0.429) % Nucleat RBC Rel Count (0.00-0.2) % Eos # (Auto) (0.04-0.36) x10^3/uL Immature Gran # (Auto) (0.001-0.031) x10^3u/L Absolute Lymphs (auto) (1.18-3.74) x10^3/uL Absolute Monos (auto) (0.24-0.86) x10^3/uL Absolute Nucleated RBC (0.00-0.012) x10^3u/L Lymphocytes % (19.3-51.7) % Monocytes % (4.7-12.5) % Eosinophils % (0.7-5.8) % Basophils % (0.1-1.2) % Absolute Granulocytes (1.56-6.13) x10^3/uL Basophils # (0.01-0.08) x10^3/uL D-Dimer (0.0-0.50) mg/L Sodium (135-145) mmol/L Potassium (3.5-5.1) mmol/L Chloride (98-107) mmol/L Carbon Dioxide (22-30) mmol/L Anion Gap (5-15) MEQ/L BUN (7-17) mg/dL Creatinine (0.52-1.04) mg/dL Estimated GFR ML/MIN Glucose (74-106) mg/dL Lactic Acid (0.4-2.0) Calcium (8.4-10.2) mg/dL Total Bilirubin (0.2-1.3) mg/dL AST (14-36) U/L ALT (0-35) U/L Alkaline Phosphatase (38-126) U/L Troponin I < 0.012 (0.000-0.033) ng/mL NT-Pro-B Natriuret Pep 116 (<300) pg/mL Serum Total Protein (6.3-8.2) g/dL Albumin (3.5-5.0) g/dL Urine Color Yellow (Yellow) Urine Appearance Clear (Clear) Urine pH 5.5 (4.6-8.0) Ur Specific [place] 1.025 (1.005-1.030) Urine Protein 30 (Negative) Urine Glucose (UA) Negative (Negative) mg/dL Urine Ketones Trace A (Negative) Urine Blood Negative (Negative) Urine Nitrite Negative (Negative) Urine Bilirubin Negative (Negative) Urine Urobilinogen 0.2 (0.2) mg/dL Ur Leukocyte Esterase Negative (Negative) U Hyaline Cast (Auto) 3-5 A (0-2) /LPF Urine Microscopic RBC 0-2 (0-5) /HPF Urine Microscopic WBC 0-2 (0-5) /HPF Ur Epithelial Cells None Seen (None Seen) /HPF Urine Bacteria None Seen (None Seen) /HPF Urine Culture Reflexed NO (NO) Influenza Type A Ag NEGATIVE (NEGATIVE) Influenza Type B Ag NEGATIVE (NEGATIVE) RSV (PCR) NEGATIVE (NEGATIVE) SARS-CoV-2 (PCR) NEGATIVE (NEGATIVE) 07/26/24 07/26/24 07/26/24 Range/Units 21:56 21:56 21:56 WBC 6.5 (3.98-10.04) x10^3/uL RBC 4.07 (3.93-5.22) x10^6/uL Hgb 12.2 (11.2-15.7) g/dL Hct 36.0 (34.1-44.9) % MCV 88.5 (79.4-94.8) fL MCH 30.0 (25.6-32.2) pg MCHC 33.9 (32.2-35.5) g/dL RDW 12.1 (11.7-14.4) % Plt Count 176 L (182-369) x10^3/uL MPV 9.5 (9.4-12.3) fL Gran % 69.1 (34.0-71.1) % Immature Gran % (Auto) 0.6 H (0.001-0.429) % Nucleat RBC Rel Count 0.0 (0.00-0.2) % Eos # (Auto) 0.16 (0.04-0.36) x10^3/uL Immature Gran # (Auto) 0.04 H (0.001-0.031) x10^3u/L Absolute Lymphs (auto) 1.37 (1.18-3.74) x10^3/uL Absolute Monos (auto) 0.40 (0.24-0.86) x10^3/uL Absolute Nucleated RBC 0.00 (0.00-0.012) x10^3u/L Lymphocytes % 21.1 (19.3-51.7) % Monocytes % 6.2 (4.7-12.5) % Eosinophils % 2.5 (0.7-5.8) % Basophils % 0.5 (0.1-1.2) % Absolute Granulocytes 4.48 (1.56-6.13) x10^3/uL Basophils # 0.03 (0.01-0.08) x10^3/uL D-Dimer 1.13 H* (0.0-0.50) mg/L Sodium 139 (135-145) mmol/L Potassium 3.9 (3.5-5.1) mmol/L Chloride 106 (98-107) mmol/L Carbon Dioxide 24 (22-30) mmol/L Anion Gap 12.9 (5-15) MEQ/L BUN 17 (7-17) mg/dL Creatinine 0.58 (0.52-1.04) mg/dL Estimated GFR 97.3 ML/MIN Glucose 212 H (74-106) mg/dL Lactic Acid (0.4-2.0) Calcium 9.0 (8.4-10.2) mg/dL Total Bilirubin 0.50 (0.2-1.3) mg/dL AST 29 (14-36) U/L ALT 25 (0-35) U/L Alkaline Phosphatase 93 (38-126) U/L Troponin I (0.000-0.033) ng/mL NT-Pro-B Natriuret Pep (<300) pg/mL Serum Total Protein 6.5 (6.3-8.2) g/dL Albumin 4.1 (3.5-5.0) g/dL Urine Color (Yellow) Urine Appearance (Clear) Urine pH (4.6-8.0) Ur Specific [place] (1.005-1.030) Urine Protein (Negative) Urine Glucose (UA) (Negative) mg/dL Urine Ketones (Negative) Urine Blood (Negative) Urine Nitrite (Negative) Urine Bilirubin (Negative) Urine Urobilinogen (0.2) mg/dL Ur Leukocyte Esterase (Negative) U Hyaline Cast (Auto) (0-2) /LPF Urine Microscopic RBC (0-5) /HPF Urine Microscopic WBC (0-5) /HPF Ur Epithelial Cells (None Seen) /HPF Urine Bacteria (None Seen) /HPF Urine Culture Reflexed (NO) Influenza Type A Ag (NEGATIVE) Influenza Type B Ag (NEGATIVE) RSV (PCR) (NEGATIVE) SARS-CoV-2 (PCR) (NEGATIVE) 07/26/24 Range/Units 21:50 WBC (3.98-10.04) x10^3/uL RBC (3.93-5.22) x10^6/uL Hgb (11.2-15.7) g/dL Hct (34.1-44.9) % MCV (79.4-94.8) fL MCH (25.6-32.2) pg MCHC (32.2-35.5) g/dL RDW (11.7-14.4) % Plt Count (182-369) x10^3/uL MPV (9.4-12.3) fL Gran % (34.0-71.1) % Immature Gran % (Auto) (0.001-0.429) % Nucleat RBC Rel Count (0.00-0.2) % Eos # (Auto) (0.04-0.36) x10^3/uL Immature Gran # (Auto) (0.001-0.031) x10^3u/L Absolute Lymphs (auto) (1.18-3.74) x10^3/uL Absolute Monos (auto) (0.24-0.86) x10^3/uL Absolute Nucleated RBC (0.00-0.012) x10^3u/L Lymphocytes % (19.3-51.7) % Monocytes % (4.7-12.5) % Eosinophils % (0.7-5.8) % Basophils % (0.1-1.2) % Absolute Granulocytes (1.56-6.13) x10^3/uL Basophils # (0.01-0.08) x10^3/uL D-Dimer (0.0-0.50) mg/L Sodium (135-145) mmol/L Potassium (3.5-5.1) mmol/L Chloride (98-107) mmol/L Carbon Dioxide (22-30) mmol/L Anion Gap (5-15) MEQ/L BUN (7-17) mg/dL Creatinine (0.52-1.04) mg/dL Estimated GFR ML/MIN Glucose (74-106) mg/dL Lactic Acid 2.8 H (0.4-2.0) Calcium (8.4-10.2) mg/dL Total Bilirubin (0.2-1.3) mg/dL AST (14-36) U/L ALT (0-35) U/L Alkaline Phosphatase (38-126) U/L Troponin I (0.000-0.033) ng/mL NT-Pro-B Natriuret Pep (<300) pg/mL Serum Total Protein (6.3-8.2) g/dL Albumin (3.5-5.0) g/dL Urine Color (Yellow) Urine Appearance (Clear) Urine pH (4.6-8.0) Ur Specific [place] (1.005-1.030) Urine Protein (Negative) Urine Glucose (UA) (Negative) mg/dL Urine Ketones (Negative) Urine Blood (Negative) Urine Nitrite (Negative) Urine Bilirubin (Negative) Urine Urobilinogen (0.2) mg/dL Ur Leukocyte Esterase (Negative) U Hyaline Cast (Auto) (0-2) /LPF Urine Microscopic RBC (0-5) /HPF Urine Microscopic WBC (0-5) /HPF Ur Epithelial Cells (None Seen) /HPF Urine Bacteria (None Seen) /HPF Urine Culture Reflexed (NO) Influenza Type A Ag (NEGATIVE) Influenza Type B Ag (NEGATIVE) RSV (PCR) (NEGATIVE) SARS-CoV-2 (PCR) (NEGATIVE) - Progress Progress: improved, re-examined Air Movement: good Progress Note: 07/27/24 01:27 pt has improved after Tx and feels well to go home. I discussed that although some reactive airway may explain her symptoms, we have not determined an exact cause and there may still be pathology developing undetected even including cardiac or vascular, or infectious. She has had no CP and feels her cardiac is well controlled. They prefer outpt f/u rather than further obs in hosp or ER and have the capacity to make this choice. she would like the trial of steroids. she etelvina f/u for the nodes on imaging. 07/27/24 01:30 Blood Culture(s) Obtained: No Antibiotics given: Yes Counseled pt/family regarding: lab results, diagnosis, need for follow-up, rad results Medical Desision Making - Independent Historian Additional History obtained from: Family - Discussion of managment Reviewed:: Test results, Need for additional workup Agreed on:: Treatment plan, need for follow-up - Diagnostic Testing Diagnostic test were ordered, analyzed, and reviewed by me: Yes Radiological Interpretation: Teleradiologist Report - Risk of complications The pt has a mod risk of morbidity or mortality based on: Need for prescription drug management The pt has a high risk of morbidity or mortality based on: Decision regarding hospitilization or escalation of hosp level of care - Departure Departure Disposition: Home Clinical Impression: ENlarged thoracic nodes, Persistent cough for 3 weeks or longer, reactive airway symptoms Condition: Good Critical Care Time: No Referrals: ALEJO DIAZ MD [Primary Care Provider] - Follow up/PCP as directed Instructions: Shortness of Breath (Dyspnea) (DC), Swollen lymph nodes in adults Additional Instructions: We have not yet determined the exact cause for your symptoms and there should be further workup and referral to a mix chemist (ALSO FOR THE ENLARGE LYMPH NODES IN YOUR CHEST) may be considered by your Dr. and you should follow up this week . We have prescribed a short course of steroids to help the inflammation which may be related to the cough. return meantime if any chest pain, shortness of breath, vomiting, fever, dizziness or any other symptoms of concern. also followup your blood pressure which was a little high. Prescriptions: Methylprednisolone Packet [Medrol Dosepack] 4 mg PO UD #30 packet
[2024-07-26 21:59] LABS: Absolute Neutrophil Ct (ANC) 4.48 x10^3/uL (1.56-6.13); BASOPHIL % 0.5 % (0.1-1.2); Basophil (Absolute #) 0.03 x10^3/uL (0.01-0.08); Eosinophil % 2.5 % (0.7-5.8); Eosinophil (Absolute #) 0.16 x10^3/uL (0.04-0.36); Hemoglobin 12.2 g/dL (11.2-15.7); IMMATURE GRAN # 0.04 x10^3u/L (0.001-0.031); IMMATURE GRAN % 0.6 % (0.001-0.429); Lymphocyte (Absolute #) 1.37 x10^3/uL (1.18-3.74); Lymphocytes % 21.1 % (19.3-51.7); Mean Cell Volume 88.5 fL (79.4-94.8); Mean Corpuscular Hgb Concent. 33.9 g/dL (32.2-35.5); Mean Platelet Volume 9.5 fL (9.4-12.3); Monocytes % 6.2 % (4.7-12.5); Neutrophil % 69.1 % (34.0-71.1); Platelet Count 176 x10^3/uL (182-369); Red Blood Count 4.07 x10^6/uL (3.93-5.22); Red Cell Distribution Width 12.1 % (11.7-14.4); White Blood Count 6.5 x10^3/uL (3.98-10.04)
[2024-07-26 22:15] LABS: ALBUMIN 4.1 g/dL (3.5-5.0); BILIRUBIN,TOTAL 0.5 mg/dL (0.2-1.3); Creatinine 1 0.58 mg/dL (0.52-1.04); EST GLOMERULAR FILTRATION RATE 97.3 ML/MIN; Total Protein 6.5 g/dL (6.3-8.2)
[2024-07-26 22:18] LABS: ANION GAP 12.9 MEQ/L (5-15); Potassium 3.9 mmol/L (3.5-5.1)
[2024-07-26 22:27] LABS: NT PRO BNPII 116 pg/mL (<300); TROPONIN < 0.012 ng/mL (0.000-0.033)
[2024-07-26 22:36] LABS: INFLUENZA A NEGATIVE (NEGATIVE); INFLUENZA B NEGATIVE (NEGATIVE); RESPIRATORY SYNCTIAL VIRUS NEGATIVE (NEGATIVE); SARS-CoV-2 Xpert Express NEGATIVE (NEGATIVE)
[2024-07-26] MEDS ORDERED: ROCEPHIN 1 GM / 100 ML NaCl 1 GM/100 ML IVPB IV ONE (22:55)
[2024-07-26] MEDS: ROCEPHIN 1 GM / 100 ML NaCl 1 GM/100 ML IVPB IV ONE (22:59)
[2024-07-26 23:25] LABS: Appearance Clear (Clear); Bacteria None Seen /HPF (None Seen); Bilirubin Negative (Negative); Blood Negative (Negative); Epithelial Cells None Seen /HPF (None Seen); Glucose, Urine Negative (Negative); Ketones Trace (Negative); Leukocyte Esterase Negative (Negative); Nitrite Negative (Negative); Ph 5.5 (4.6-8.0); Protein,Urine Dip 30 (Negative); RBC 0-2 /HPF (0-5); Specific Gravity 1.025 (1.005-1.030); Urobilinogen 0.2 mg/dL (0.2); WBC 0-2 /HPF (0-5)
--- NOTE | 2024-07-27 00:31 | XRAY ---
CLINICAL HISTORY: feeling of compression in neck COMPARISON: None. TECHNIQUE: CT scan of the neck was performed without administration of intravenous contrast. Sagittal and coronal reconstructions were obtained. One of the following dose reduction techniques were utilized for this exam: Automated exposure control, adjustment of the mA and/or kV according to patient size, and use of iterative reconstruction. CTDI: 17.28 mGy. DLP: 364.28 mGy.cm. FINDINGS: Nasopharynx: Normal size and appearance. No masses. Oropharynx: Normal size and appearance. No masses. Larynx and Hypopharynx: Normal appearance of the laryngeal structures. Vocal cords are normal in appearance and movement. No masses. Thyroid Gland: Normal size and morphology. No nodules or masses. Salivary Glands: Parotid, submandibular, and sublingual glands are normal in size and appearance. No evidence of sialadenitis or masses. Lymph Nodes: left-sided supraclavicular small lymph nodes largest measuring 15x9 mm surrounded by mild fat stranding, suggestive of the inflammatory process Bones: Degenerative changes of the scanned spine Airway: unremarkable IMPRESSION: 1. left-sided supraclavicular small lymph nodes largest measuring 15x9 mm surrounded by mild fat stranding, suggestive of the inflammatory process, further assessment by a US study and clinical correlation is recommended. 2. otherwise unremarkable CT of the soft tissue neck without contrast with no acute abnormalities. Electronically Signed by: Amari Zelaya MD. (07/27/2024 00:27:56 EST)
--- NOTE | 2024-07-27 01:07 | XRAY ---
CLINICAL HISTORY: short of breath COMPARISON: None. TECHNIQUE: Contiguous 3.[address] images of the chest were acquired with administration of intravenous contrast. Coronal and sagittal reconstructions were obtained. 80 ml Isovue 370 was administered for post contrast images. One of the following dose reduction techniques were utilized for this exam: Automated exposure control, adjustment of the mA and/or kV according to patient size, and use of iterative reconstruction. FINDINGS: Lungs: Lungs are clear with no evidence of consolidation, collapse, or focal lesions. No ground-glass opacities or interstitial changes. No pleural effusion or pleural thickening. Mediastinum: Bilateral hilar and mediastinal mildly enlarged lymph nodes, largest is retrocaval measuring 16X14 mm likely reactionary. Normal appearance of the thymus. Hilar Structures: Normal size and configuration, no enlargement. Heart and Great Vessels: Normal heart size and configuration. No pericardial effusion. Normal caliber and course of the thoracic aorta and other great vessels. No significant atherosclerosis or aneurysm. Normal enhancement of the great vessels post-contrast. Pulmonary Arteries: No evidence of pulmonary embolism. Normal size and course of the pulmonary arteries. Esophagus: Normal course and caliber. No masses or dilatation. Bones: Degenerative changes of the scanned spine Chest Wall: No masses or soft tissue abnormalities. Upper Abdomen: Cholecystectomy Thyroid: Normal size and morphology. No nodules or masses. IMPRESSION: The study is negative for pulmonary embolism. No acute cardiopulmonary findings. Electronically Signed by: Amari Zelaya MD. (07/27/2024 01:03:46 EST)
[2024-07-27 01:19] VITALS: O2SAT 99
[2024-07-27 01:57] VITALS: BP 153/72; PULSE 80; RESP 18
== END 2024-07-27 01:57 | disposition home or self-care (01) ==
LOC: ED 20:58
DX: R59.0 Localized enlarged lymph nodes (principal); R05.2 Subacute cough; J45.909 Unspecified asthma, uncomplicated; R06.02 Shortness of breath; E78.5 Hyperlipidemia, unspecified; I10 Essential (primary) hypertension; E11.9 Type 2 diabetes mellitus without complications; Z79.52 Long term (current) use of systemic steroids; Z79.84 Long term (current) use of oral hypoglycemic drugs; Z79.899 Other long term (current) drug therapy
CPT/HCPCS: 0241U; 36415; 70490; 71260; 80053; 81001; 83605; 83880; 84484; 85025; 85379; 93005; 93041; 94760; 96374; 99285; 99284; J0696

== ENCOUNTER 2024-11-11 09:44 | Day surgery (SDC) | payer MEDICARE ==
[2024-11-11] MEDS ORDERED: Lactated Ringers 1,000 ML IV ONE (09:56)
[2024-11-11] MEDS: TETRACAINE 0.5% STERI-UNIT SOL OP ONE ×2 (10:11→10:23)
[2024-11-11] MEDS: Ak-Dilate OPHTHALMIC*** 0.71 ML, Cyclogyl 1% OPHTH SOL 0.71 ML, GATIFLOXACIN 0.5% OPHTH... OP SCH (10:12)
[2024-11-11] MEDS: Lactated Ringers 1,000 ML IV SCH (10:18)
[2024-11-11] MEDS ORDERED: OMIDRIA 1-0.3% VIAL IO NR (12:00)
[2024-11-11] MEDS ORDERED: VIGAMOX/BSS 0.15% SYR IO NR (12:00)
[2024-11-11] MEDS ORDERED: DEXTENZA OP NR (12:00)
[2024-11-11] MEDS ORDERED: TRIAMCINOLONE 15 MG/ML INJ INTRAOP NR (12:00)
[2024-11-11] MEDS ORDERED: BETADINE 5% OPHTHALMIC 30 ML OP NR (12:00)
[2024-11-11] MEDS ORDERED: DEXMEDETOMIDINE 80 MCG/20ML-NS IV NR (12:00)
[2024-11-11] MEDS ORDERED: Zofran 4 MG/2 ML VIAL IV PRN (12:15)
[2024-11-11] MEDS ORDERED: SUBLIMAZE 100 MCG/2 ML ONE (13:06)
[2024-11-11] MEDS ORDERED: Versed 2 MG/2 ML Injection ONE (13:06)
[2024-11-11 13:36] VITALS: RESP 18; TEMP 97.9
[2024-11-11] MEDS: ACETAZOLAMIDE 250 MG TABLET PO ONE (13:39)
[2024-11-11 13:41] VITALS: O2SAT 95
[2024-11-11 13:52] VITALS: BP 111/70; PULSE 69
== END 2024-11-11 13:59 | disposition home or self-care (01) ==
LOC: SDC 09:44
PROVIDERS: ATTEND Ophthalmology
DX: H25.812 Combined forms of age-related cataract, left eye (principal); E11.9 Type 2 diabetes mellitus without complications
CPT/HCPCS: 82947; C1780; J1096; J1097; J2250; J3010; A9270-GY